=== PATIENT | female | born 1955 | race Caucasian/White ===

== ENCOUNTER → 2017-08-24 07:58 | Outpatient (CLI) | payer OTHER, SELFPAY ==
[2017-08-24 09:03] LABS: Basophils % 0.6 % (0.1-2.0); Eosinophils # 0.1 K/mm3 (0.0-0.4); Eosinophils % 2.6 % (0.1-12.0); Hematocrit 40.1 % (37.0-47.0); Hemoglobin 13.3 g/dL (12.2-16.2); Lymphocytes # 1.4 K/mm3 (0.7-4.5); Lymphocytes % 24.9 K/mm3 (10-50); Mean Corpuscular Hemoglobin 32.8 pg (27.0-31.2); Mean Corpuscular Volume 99.4 fl (81-99); Mean Platelet Volume 9.1 fl (7.4-10.4); Monocytes # 0.3 K/mm3 (0.1-1.0); Neutrophils # 3.6 K/mm3 (1.8-7.8); Neutrophils % 65.9 % (37.0-80.0); Platelet Count 210 K/mm3 (142-424); Red Blood Count 4.04 M/mm3 (4.20-5.40); Red Cell Distribution Width 12.5 % (11.5-17.5); White Blood Count 5.5 K/mm3 (4.8-10.8)
[2017-08-24 09:34] LABS: Alanine Aminotransferase 33 U/L (12-78); Albumin Level 3.6 gm/dL (3.4-5.0); Albumin/Globulin Ratio 1.3 (1.1-1.8); Alkaline Phosphatase 100 U/L (46-116); Anion Gap 11.2 mEq/L (5-15); Aspartate Amino Transferase 25 U/L (15-37); Bilirubin,Total 0.4 mg/dL (0.2-1.0); Blood Urea Nitrogen 17 mg/dL (7-18); Calcium 8.9 mg/dL (8.5-10.1); Carbon Dioxide 29 mmol/L (21.0-32.0); Chloride 105 mmol/L (98-107); Creatinine,Serum 1.08 mg/dL (0.55-1.02); Estimated Glomerular Filt Rate 52 ml/min (>60); GFR (African American) 62 ML/MIN (>60); Globulin 2.7 gm/dl (1.3-3.2); Glucose 92 mg/dL (74-106); Potassium 4.2 mmoL/L (3.5-5.1); Sodium 141 mmol/L (136-145); Thyroid Stimulating Hormone 0.26 uIU/ml (0.358-3.740); Total Protein,Serum 6.3 gm/dL (6.4-8.2)
[2017-08-25 07:20] LABS: Testosterone,Total 18 ng/dL (3-41)
[2017-08-25 11:04] LABS: LH 38.9 mIU/mL (.)
[2017-08-25 11:05] LABS: FSH 53.1 mIU/mL (.)
== END ==
PROVIDERS: Visit Provider Internal Medicine Adolescent Medicine
DX: I10 Essential (primary) hypertension (principal); E03.9 Hypothyroidism, unspecified
CPT/HCPCS: 36415; 80053; 83001; 83002; 84403; 84443; 85025

== ENCOUNTER → 2017-12-05 07:13 | Outpatient (CLI) | payer OTHER, SELFPAY ==
[2017-12-05 07:29] LABS: Basophils % 0.4 % (0.1-2.0); Eosinophils # 0.2 K/mm3 (0.0-0.4); Eosinophils % 2.6 % (0.1-12.0); Hematocrit 42.1 % (37.0-47.0); Hemoglobin 13.8 g/dL (12.2-16.2); Lymphocytes # 1.3 K/mm3 (0.7-4.5); Lymphocytes % 20.9 K/mm3 (10-50); Mean Corpuscular HGB Conc 32.8 g/dL (31.8-35.4); Mean Corpuscular Hemoglobin 32.6 pg (27.0-31.2); Mean Corpuscular Volume 99.5 fl (81-99); Mean Platelet Volume 8.6 fl (7.4-10.4); Monocytes # 0.4 K/mm3 (0.1-1.0); Monocytes % 6.2 % (1.7-9.3); Neutrophils # 4.3 K/mm3 (1.8-7.8); Neutrophils % 69.9 % (37.0-80.0); Platelet Count 235 K/mm3 (142-424); Red Blood Count 4.23 M/mm3 (4.20-5.40); Red Cell Distribution Width 12.8 % (11.5-17.5); White Blood Count 6.2 K/mm3 (4.8-10.8)
[2017-12-05 11:41] LABS: Alanine Aminotransferase 39 U/L (12-78); Albumin Level 3.9 gm/dL (3.4-5.0); Albumin/Globulin Ratio 1.4 (1.1-1.8); Alkaline Phosphatase 104 U/L (46-116); Anion Gap 10.9 mEq/L (5-15); Aspartate Amino Transferase 24 U/L (15-37); Bilirubin,Total 0.4 mg/dL (0.2-1.0); Blood Urea Nitrogen 22 mg/dL (7-18); Calcium 9.3 mg/dL (8.5-10.1); Carbon Dioxide 28 mmol/L (21.0-32.0); Chloride 103 mmol/L (98-107); Creatinine,Serum 1.21 mg/dL (0.55-1.02); Estimated Glomerular Filt Rate 45 ml/min (>60); Free Thyroxine Index 3.8 ug/dL (5.93-13.13); GFR (African American) 55 ML/MIN (>60); Globulin 2.8 gm/dl (1.3-3.2); Glucose 89 mg/dL (74-106); Potassium 4.9 mmoL/L (3.5-5.1); Sodium 137 mmol/L (136-145); T4 (Thyroxine) 10.2 ug/dl (4.7-13.3); Total Protein,Serum 6.7 gm/dL (6.4-8.2); Triiodothryronine (T3) Uptake 37 % (31-39)
== END ==
PROVIDERS: Visit Provider Internal Medicine Adolescent Medicine
DX: E03.9 Hypothyroidism, unspecified (principal)
CPT/HCPCS: 36415; 80053; 84436; 84443; 84479; 85025

== ENCOUNTER → 2018-05-30 09:17 | Outpatient (CLI) | payer OTHER, SELFPAY ==
--- NOTE | 2018-05-30 | XR_ITS ---
XR chest 2V HISTORY: ITS.REASON: CHEST WALL PAIN ORDERING PHYSICIAN: Matias Lemon MD PATIENT AGE: 63 years COMPARISON: 08/04/2016 FINDINGS: The cardiomediastinal silhouette and pulmonary vascularity are within normal limits. The lungs are clear without infiltrates, suspicious nodules, or pleural effusions. Calcified nodes are present in the left hilum. Multiple sophia are present along the anterior abdominal wall No acute bony abnormalities. IMPRESSION: No change with no acute finding
[2018-05-30 09:39] LABS: Basophils % 0.4 % (0.1-2.0); Eosinophils % 0.6 % (0.1-12.0); Hematocrit 44.7 % (37.0-47.0); Hemoglobin 14.3 g/dL (12.2-16.2); Lymphocytes # 1.1 K/mm3 (0.7-4.5); Lymphocytes % 15.4 % (10-50); Mean Corpuscular Hemoglobin 31.8 pg (27.0-31.2); Mean Corpuscular Volume 99.5 fl (81-99); Mean Platelet Volume 8.9 fl (7.4-10.4); Monocytes # 0.5 K/mm3 (0.1-1.0); Monocytes % 7.3 % (1.7-9.3); Neutrophils # 5.6 K/mm3 (1.8-7.8); Neutrophils % 76.3 % (37.0-80.0); Platelet Count 206 K/mm3 (142-424); Red Blood Count 4.49 M/mm3 (4.20-5.40); Red Cell Distribution Width 12.8 % (11.5-17.5); White Blood Count 7.3 K/mm3 (4.8-10.8)
[2018-05-30 10:57] LABS: Alanine Aminotransferase 36 U/L (12-78); Albumin/Globulin Ratio 1.4 (1.1-1.8); Alkaline Phosphatase 116 U/L (46-116); Anion Gap 13.5 mEq/L (5-15); Aspartate Amino Transferase 21 U/L (15-37); Bilirubin,Total 0.8 mg/dL (0.2-1.0); Blood Urea Nitrogen 20 mg/dL (7-18); CKMB Relative Index 1.5 U/L (0-4.0); Calcium 9.5 mg/dL (8.5-10.1); Carbon Dioxide 28 mmol/L (21.0-32.0); Chloride 104 mmol/L (98-107); Creatine Kinase 55 U/L (26-192); Creatine Kinase MB 0.8 ng/ml (0.0-3.6); Creatinine,Serum 0.99 mg/dL (0.55-1.02); Estimated Glomerular Filt Rate 57 ml/min (>60); GFR (African American) 69 ML/MIN (>60); Globulin 2.8 gm/dl (1.3-3.2); Glucose 97 mg/dL (74-106); Potassium 4.5 mmoL/L (3.5-5.1); Sodium 141 mmol/L (136-145); Total Protein,Serum 6.8 gm/dL (6.4-8.2); Troponin I < 0.02 ng/ml (0.00-0.06)
== END ==
LOC: LAB 09:18 → RAD 09:24
PROVIDERS: PCP Internal Medicine Adolescent Medicine; Visit Provider Internal Medicine Adolescent Medicine
DX: R07.89 Other chest pain (principal); R07.2 Precordial pain
CPT/HCPCS: 36415; 71046; 80053; 82550; 82553; 84484; 85025

== ENCOUNTER → 2018-11-26 08:23 | Outpatient (CLI) | payer OTHER, SELFPAY ==
[2018-11-26 09:26] LABS: Free Thyroxine Index 3.8 ug/dL (5.93-13.13); Thyroid Stimulating Hormone 0.32 uIU/ml (0.358-3.740); Triiodothryronine (T3) Uptake 38 % (31-39)
== END ==
PROVIDERS: Visit Provider Internal Medicine Adolescent Medicine
DX: E03.9 Hypothyroidism, unspecified (principal)
CPT/HCPCS: 36415; 84436; 84443; 84479

== ENCOUNTER → 2018-12-17 15:06 | Outpatient (CLI) | payer OTHER, SELFPAY ==
[2018-12-17 16:03] LABS: Alanine Aminotransferase 56 U/L (12-78); Albumin Level 3.9 gm/dL (3.4-5.0); Albumin/Globulin Ratio 1.4 (1.1-1.8); Alkaline Phosphatase 133 U/L (46-116); Anion Gap 10.6 mEq/L (5-15); Aspartate Amino Transferase 41 U/L (15-37); Bilirubin,Total 0.3 mg/dL (0.2-1.0); Blood Urea Nitrogen 20 mg/dL (7-18); Calcium 9.3 mg/dL (8.5-10.1); Carbon Dioxide 30 mmol/L (21.0-32.0); Chloride 106 mmol/L (98-107); Creatinine,Serum 0.91 mg/dL (0.55-1.02); Estimated Glomerular Filt Rate 63 ml/min (>60); GFR (African American) 76 ML/MIN (>60); Globulin 2.8 gm/dl (1.3-3.2); Glucose 97 mg/dL (74-106); Magnesium 2.2 mg/dL (1.4-2.2); Potassium 4.6 mmoL/L (3.5-5.1); Sodium 142 mmol/L (136-145); Thyroid Stimulating Hormone 0.19 uIU/ml (0.358-3.740); Total Protein,Serum 6.7 gm/dL (6.4-8.2)
[2018-12-17 16:06] LABS: Basophils % 0.5 % (0.1-2.0); Eosinophils # 0.2 K/mm3 (0.0-0.4); Eosinophils % 4.1 % (0.1-12.0); Hematocrit 42.8 % (37.0-47.0); Hemoglobin 13.6 g/dL (12.2-16.2); Lymphocytes # 1.4 K/mm3 (0.7-4.5); Lymphocytes % 24.1 % (10-50); Mean Corpuscular HGB Conc 31.7 g/dL (31.8-35.4); Mean Corpuscular Hemoglobin 32.2 pg (27.0-31.2); Mean Corpuscular Volume 101.7 fl (81-99); Mean Platelet Volume 8.4 fl (7.4-10.4); Monocytes # 0.2 K/mm3 (0.1-1.0); Monocytes % 3.5 % (1.7-9.3); Neutrophils % 67.9 % (37.0-80.0); Platelet Count 215 K/mm3 (142-424); Red Blood Count 4.21 M/mm3 (4.20-5.40); Red Cell Distribution Width 12.8 % (11.5-17.5); White Blood Count 5.9 K/mm3 (4.8-10.8)
[2018-12-19 10:03] LABS: Vitamin B12 >2000 pg/mL (232-1245); Vitamin D 25 Hydroxy 30.5 ng/mL (30.0-100.0)
== END ==
PROVIDERS: Visit Provider Nurse Practitioner Family
DX: R53.81 Other malaise (principal); R42 Dizziness and giddiness; E03.9 Hypothyroidism, unspecified
CPT/HCPCS: 36415; 80053; 82607; 82652; 83735; 84443; 85025

== ENCOUNTER → 2019-01-15 13:38 | Outpatient (CLI) | payer OTHER, SELFPAY ==
--- NOTE | 2019-01-15 13:39 | MM_ITS ---
PROCEDURE: MM DIG SCREENING MAMM BI W/CAD CLINICAL INDICATION: bilateral breast pain, annual screening There is no personal or family history of breast cancer. COMPARISON: [facility]B DIGITAL MAMM-SCREEN BILATERAL from 12/30/2010 D[facility]B DIG MAMM-SCREEN JUWAN from 10/12/2012 DMSB DIG MAMM-SCREEN JUWAN W/CAD from 09/01/2016 TECHNIQUE: Standard CC and MLO images were obtained. R2 CAD reviewed. FINDINGS: Breasts are composed primarily of fat with minimal scattered fibroglandular densities in each breast. There is benign-appearing macrocalcifications left breast, there is faint arterial calcification in each breast. There is no suspicious lesion in either breast and no suspicious microcalcifications. There are fatty replaced nodes in both IMPRESSION: Fibrofatty parenchyma with no suspicious lesions seen BI-RAD Category: 2 Benign Finding(s) FOLLOW-UP: 1YR 1 Year Follow-up (A letter has been sent to the patient regarding results of the study.) Dictated by: Dr. Ishaan Paulino MD 01/20/2019 15:[address] Ishaan Paulino MD in [place] 01/20/2019 15:36
== END ==
PROVIDERS: PCP Internal Medicine Adolescent Medicine; Visit Provider Nurse Practitioner Obstetrics & Gynecology
DX: N64.4 Mastodynia (principal)
CPT/HCPCS: 77067

== ENCOUNTER → 2020-03-26 08:52 | Outpatient (CLI) | payer OTHER, SELFPAY ==
--- NOTE | 2020-03-26 08:54 | MM_ITS ---
PROCEDURE: MM DIG SCREENING MAMM BI W/CAD Digital Breast Tomosynthesis Included CLINICAL INDICATION: SCREENING There is no personal or family history of breast cancer. COMPARISON: MG DMSB DIG MAMM-SCREEN JUWAN from 10/12/2012 MG DMSB DIG MAMM-SCREEN JUWAN W/CAD from 09/01/2016 MG MM DIG SCREENING MAMM BI W/CAD from 01/15/2019 TECHNIQUE: Standard CC and MLO images and 3D Tomosynthesis was obtained. R2 CAD reviewed. FINDINGS: Scattered fibroglandular densities are seen throughout both breasts. There is a benign-appearing macro calcification left breast. There is no suspicious lesion in either breast and no suspicious microcalcifications. IMPRESSION: Fibrofatty parenchyma with no suspicious lesions seen BI-RAD Category: 2 Benign Finding(s) FOLLOW-UP: 1YR 1 Year Follow-up (A letter has been sent to the patient regarding results of the study.) Dictated by: Dr. Ishaan Paulino MD 03/29/2020 11:09 Dr. Ishaan Paulino MD in [place] 03/29/2020 11:09
== END ==
PROVIDERS: PCP Internal Medicine Adolescent Medicine; Visit Provider Internal Medicine Adolescent Medicine
DX: Z12.31 Encounter for screening mammogram for malignant neoplasm of breast (principal)
CPT/HCPCS: 77063; 77067

== ENCOUNTER → 2020-05-15 15:55 | Outpatient (CLI) | payer OTHER, SELFPAY | PROVIDERS: PCP Internal Medicine Adolescent Medicine; Visit Provider Internal Medicine Adolescent Medicine | DX: R51.9 Headache, unspecified; Z11.52 Encounter for screening for COVID-19 | CPT/HCPCS: U0003 ==

== ENCOUNTER → 2020-06-12 10:08 | Outpatient (CLI) | payer OTHER, SELFPAY ==
--- NOTE | 2020-06-12 10:13 | XR_ITS ---
PROCEDURE: XR HAND LT MIN 3V CLINICAL INDICATION: left hand pain/ cyst COMPARISON: No exams were available for comparison FINDINGS: No fracture or dislocation. No lytic or blastic change. There is normal mineralization. The joint spaces are well-preserved. No significant degenerative/arthritic changes. No erosive changes evident. Other findings:None. IMPRESSION: No acute findings. Dictated by: Scout Cantrell MD 06/12/2020 12:16 Scout Cantrell MD in [place] 06/12/2020 12:16
== END ==
PROVIDERS: PCP Internal Medicine Adolescent Medicine; Visit Provider Orthopaedic Surgery
DX: M79.642 Pain in left hand (principal)
CPT/HCPCS: 73130

== ENCOUNTER → 2020-07-01 11:55 | Outpatient (CLI) | payer OTHER, SELFPAY ==
[2020-07-01 13:47] LABS: Coronavirus 19 IgG Antibody Positive (Negative); Coronavirus 19 IgM Antibody Negative (Negative)
== END ==
PROVIDERS: Visit Provider Orthopaedic Surgery
DX: Z01.818 Encounter for other preprocedural examination (principal); M79.642 Pain in left hand; R22.32 Localized swelling, mass and lump, left upper limb; Z20.822 Contact with and (suspected) exposure to COVID-19
CPT/HCPCS: 86328

== ENCOUNTER 2020-07-02 09:42 | Day surgery (SDC) | payer OTHER, SELFPAY ==
[2020-06-30 10:57] VITALS: BMI 35.4
[2020-07-02 09:57] VITALS: BP 138/73; PULSE 68; RESP 18; TEMP 36.2; O2SAT 100
--- NOTE | 2020-07-02 10:22 | HMH.ANESCL ---
[facility] Anesthesia Checklist - Structural Data Admitted From: Home Planned Operative Procedure/s: excision mass l hand Consent for Planned Operative Procedure(s) Verified: Yes - Additional verifications Anesthesia Reactions: No Hx Blood Transfusions: No Blood Transfusion Reaction: No - Airway Assessment C-Spine Mobility Assessed: Yes TMJ Mobility Assessed: Yes Dentition: Good Dentition - Neurological Assessment Level of Consciousness: Awake, Alert, Appropriate - Anesthesia Plan Anesthesia Risk discussed: Yes Anesthesia Plan: Verified ASA Class: II Anesthesia Type: Local & MAC [facility] History I have reviewed the patient's past medical history: Yes Medical History: Reports:: Hypertension Denies:: Cancer, Diabetes Mellitus Type 1, Diabetes Mellitus Type 2, Internal Pacemaker, Lung Disease, MRSA, Seizures *Have you ever received a pneumonia vaccine?: No *Have you received a flu vaccine this season?: Yes Other Medical History: Reports: Thyroid Disease. Denies: Blood Transfusion Reaction Anesthesia experience/problems:: none Other Surgeries: Yes: Bariatric Surgery, Colonoscopy, , Other. No: Pacemaker Amputation: No Fractures: No - *Social History Last grade of school completed: Advanced degree Smoking Status: Never smoker Alcohol Intake: never Substance Use Type: denies use *Occupational Status:: employed Housing: house Household Members: spouse *Travel in the last 8 weeks: None Family Hx:: No significant family history
[2020-07-02 11:05] VITALS: BP 106/69; PULSE 68; RESP 18; TEMP 36.4; O2SAT 94
[2020-07-02 11:15] VITALS: BP 118/69; PULSE 58; RESP 18; O2SAT 94
--- NOTE | 2020-07-02 11:18 | HMH.OPNOTE ---
Date of procedure: 07/02/20 Pre-op Diagnosis:: L hand mass Post-op Diagnosis:: L hand mass Procedure performed:: excision of L hand mass Surgeon:: Kalie Faustin MD Lead Assistant Manager(s):: Mecca Urena LICENSED MIDWIFE:: Rickie Burdick Anesthesia: MAC, local Estimated blood loss (mL): 5 Clinical Note:: 65-year-old [id number] female presents for initial orthopedic evaluation of a mass over the palm of the left hand. The palm is located at the level of the distal flexion crease of the hand, at the base of the middle/ring fingers. She reports no injury to or prior surgeries on this hand. No known cuts, punctures or abrasions in this region. She has never had a mass like this before on either hand and first noticed this appearance several months ago. It is uncomfortable and impedes her gripping objects or doing repetitive work with her hands. 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 She reports no numbness or tingling in any of her fingers. She denies any significant medical comorbidities and only takes ranitidine and levothyroxine. She is allergic to penicillin. She is a non-smoker. I discussed treatment options with the patient, including both operative and nonoperative therapies; she would like to proceed with surgical excision of the mass. I discussed the risks of surgery with the patient, including but not limited to: bleeding, infection, neurovascular damage, wound dehiscence, reappearance of another mass, possible need for further surgery in the future. The patient vocalized understanding, informed consent obtained. Operative findings:: mass L hand; palm, at distal flexion crease, approximately 1cm in diameter Operative note:: The patient was identified in preoperative holding and the L hand signed by myself. Consent was verified with the patient and all questions answered. She was then taken to the OR and placed supine on the operative table with a hand table attached. 900mg clindamycin were infused and the patient sedated intravenously (MAC). Once the patient was anesthetized a non-sterile tourniquet was placed on the upper L arm and the hand prepped and draped in the usual sterile. Timeout was performed, identifying the correct patient, correct procedure, and correct site. Once timeout had been performed, the surgical incision was drawn over the mass, located in the mid-palm, at the level of the distal palmar crease, at the base of the middle finger. It was around 1cm in diameter and a 1cm longitudinal incision was drawn directly over the mass. 10cc 0.5% marcaine were infiltrated in this location for local analgesia using a sterile 25G needle; no epinephrine was in the marcaine. The procedure was begun by exsanguinating the left upper extremity with an esmarch and inflating the tourniquet to 250 mmHg. Incision was made over the pre-marked incision, on the palm, base of middle finger, distal palmar crease. The skin only was incised, and underlying subcutaneous tissue spread bluntly with tenotomy scissors. The mass was immediately identified; it was firm and mobile, somewhat adherent to the overlying skin. Tenotomy scissors were used to develop a plane between the mass and the skin, and with blunt dissection tissue was dissected circumferentially around the entire mass. The mass was entirely superficial to the flexor tendons and there was no obvious involvement of neurovascular structures; the mass was superficial and immediately deep to the skin. The mass was sent for pathology in formalin. The tourniquet was deflated at 17 minutes and the wound copiously irrigated with sterile saline. Bipolar cautery was used to obtain hemostasis and the wound was then closed with 4-0 nylon. Sterile dressing was applied with Xeroform, 4 x 4s, webril and RANDALL bandage. The patient was then taken to PACU where she arrived in good condition and awoke with no pain and was discharged home in the care of her . The [facility]
[2020-07-02 11:25] VITALS: BP 118/68; PULSE 51; RESP 18; O2SAT 95
[2020-07-02 11:42] VITALS: BP 119/69; PULSE 51; RESP 18; O2SAT 97
== END 2020-07-02 11:45 | disposition home or self-care (01) ==
LOC: OR 09:44
PROVIDERS: PCP Internal Medicine Adolescent Medicine; Visit Provider Orthopaedic Surgery
PROC: (CPT 26115; principal; 2020-07-02 11:00)
DX: R22.32 Localized swelling, mass and lump, left upper limb (principal); D23.62 Other benign neoplasm of skin of left upper limb, including shoulder
CPT/HCPCS: 26115; 96374

== ENCOUNTER → 2020-07-20 12:54 | Outpatient (CLI) | payer OTHER, SELFPAY ==
--- NOTE | 2020-07-20 12:56 | XR_ITS ---
PROCEDURE: XR FOOT WT BEARING LT 3V CLINICAL INDICATION: pain COMPARISON: CR FTR3 FOOT-RT-3 VIEWS from 06/19/2012 FINDINGS: No fracture or dislocation. No lytic or blastic change. There is normal mineralization. Mild prominence of the head of the 1st metatarsal. Mildly prominent calcaneal spur. Small Achilles enthesophyte. Other findings:None. IMPRESSION: No acute findings. Dictated by: Scout Cantrell MD 07/20/2020 14:16 Scout Cantrell MD in [place] 07/20/2020 14:16
--- NOTE | 2020-07-20 12:56 | XR_ITS ---
PROCEDURE: XR FOOT WT BEARING RT 3V CLINICAL INDICATION: pain Pain laterally COMPARISON: CR FTR3 FOOT-RT-3 VIEWS from 06/19/2012 FINDINGS: No fracture or dislocation. No lytic or blastic change. There is normal mineralization. The joint spaces are well-preserved. No significant degenerative/arthritic changes. No erosive changes evident. Other findings:Prominent calcaneal spurs present without erosive change. There are mild hypertrophic changes the distal aspect of the 1st metatarsal. No significant change compared to the previous exam. IMPRESSION: No change with no acute finding. Dictated by: Scout Cantrell MD 07/20/2020 14:15 Scout Cantrell MD in [place] 07/20/2020 14:15
== END ==
PROVIDERS: PCP Internal Medicine Adolescent Medicine; Visit Provider Podiatrist
DX: M79.672 Pain in left foot (principal); M79.671 Pain in right foot
CPT/HCPCS: 73630

== ENCOUNTER → 2020-09-14 13:44 | Outpatient (CLI) | payer OTHER, SELFPAY ==
[2020-09-14 14:27] LABS: Basophils % 0.6 % (0.1-2.0); Chloride 107 mmol/L (98-107); Eosinophils # 0.1 K/mm3 (0.0-0.4); Eosinophils % 1.8 % (0.1-12.0); Hematocrit 41.8 % (37.0-47.0); Hemoglobin 13.5 g/dL (12.2-16.2); Lymphocytes # 1.5 K/mm3 (0.7-4.5); Lymphocytes % 23.9 % (10-50); Mean Corpuscular HGB Conc 32.4 g/dL (31.8-35.4); Mean Corpuscular Hemoglobin 32.1 pg (27.0-31.2); Mean Platelet Volume 8.6 fl (7.4-10.4); Monocytes # 0.3 K/mm3 (0.1-1.0); Monocytes % 4.4 % (1.7-9.3); Neutrophils # 4.4 K/mm3 (1.8-7.8); Neutrophils % 69.4 % (37.0-80.0); Platelet Count 222 K/mm3 (142-424); Potassium 4.5 mmoL/L (3.5-5.1); Red Blood Count 4.22 M/mm3 (4.20-5.40); Red Cell Distribution Width 13.3 % (11.5-17.5); Sodium 140 mmol/L (136-145); White Blood Count 6.4 K/mm3 (4.8-10.8)
[2020-09-14 14:30] LABS: Alanine Aminotransferase 23 U/L (12-78); Albumin Level 4.3 g/dl (3.5-5.0); Albumin/Globulin Ratio 1.8 (1.1-1.8); Alkaline Phosphatase 119 U/L (38-126); Anion Gap 11.5 mEq/L (5-15); Aspartate Amino Transferase 35 U/L (14-36); Bilirubin,Total 0.4 mg/dl (0.2-1.3); Blood Urea Nitrogen 13 mg/dl (7-17); Carbon Dioxide 26 mmol/L (22.0-30.0); Estimated Glomerular Filt Rate 50 ml/min (>60); GFR (African American) 61 ML/MIN (>60); Globulin 2.4 g/dL (1.3-3.2); Total Protein,Serum 6.7 g/dl (6.3-8.2)
[2020-09-14 14:31] LABS: Calcium 9.3 mg/dl (8.4-10.2); Glucose 139 mg/dl (74-100)
[2020-09-14 14:36] LABS: C-Reactive Protein 1.2 mg/L (0-4)
[2020-09-14 15:28] LABS: Erythrocyte Sedimentation Rate 22 mm/hr (0-30)
[2020-09-14 16:50] LABS: Thyroid Stimulating Hormone 3.75 uIU/mL (0.465-4.68)
== END ==
PROVIDERS: Visit Provider Internal Medicine Adolescent Medicine
DX: R51.9 Headache, unspecified (principal); E03.9 Hypothyroidism, unspecified
CPT/HCPCS: 36415; 80053; 84443; 85025; 85651; 86140

== ENCOUNTER → 2021-02-09 08:38 | Outpatient (POV) | payer OTHER, SELFPAY | PROVIDERS: Visit Provider Dermatology | DX: Z00.00 Encounter for general adult medical examination without abnormal findings (principal) ==

== ENCOUNTER → 2021-02-18 15:13 | Outpatient (CLI) | payer OTHER, SELFPAY ==
--- NOTE | 2021-02-18 15:17 | XR_ITS ---
PROCEDURE: XR CHEST 2V CLINICAL HISTORY: SOB COMPARISON: CR CXR CHEST(2 VIEWS-NOT PORTABLE) from 05/22/2016 CR CXR CHEST(2 VIEWS-NOT PORTABLE) from 08/04/2016 CR CXR2V XR chest 2V from 05/30/2018 FINDINGS: The cardiomediastinal silhouette and pulmonary vascularity are within normal limits. The lungs are clear without infiltrates, suspicious nodules, or pleural effusions. No acute bony abnormalities. IMPRESSION: No acute findings. Dictated by: Scout Cantrell MD 02/18/2021 16:11 Scout Cantrell MD in [place] 02/18/2021 16:11
== END ==
PROVIDERS: PCP Internal Medicine Adolescent Medicine; Visit Provider Internal Medicine Adolescent Medicine
DX: R06.02 Shortness of breath (principal)
CPT/HCPCS: 71046

== ENCOUNTER → 2021-03-18 12:06 | Outpatient (CLI) | payer OTHER, SELFPAY ==
[2021-03-18 12:10] LABS: Microscopic, Urine URINE MICROSCOPIC (MICROSCOPIC)
[2021-03-18 13:27] LABS: Appearance,Urine CLEAR (Clear); Bilirubin,Urine Negative (Negative); Blood, Urine Negative (Negative); Color,Urine YELLOW (Yellow); Glucose,Urine (UA) Negative (Negative); Ketones,Urine Negative (Negative); Leukocyte Esterase,Urine 1+ (Negative); Nitrate,Urine Negative (Negative); Protein,Urine Negative (Negative); Specific Gravity, Urine 1.015 (1.005-1.030); Urobilinogen,Urine 0.2 EU/dl (0.2)
[2021-03-18 13:37] LABS: Bacteria,Urine Trace /lpf; Squamous Epithelial Cell,Urine Occasional #/hpf (0-5)
== END ==
PROVIDERS: Visit Provider Internal Medicine Adolescent Medicine
DX: N39.0 Urinary tract infection, site not specified (principal)
CPT/HCPCS: 81001; 87086; 87186

== ENCOUNTER → 2021-03-29 08:47 | Outpatient (CLI) | payer OTHER, SELFPAY ==
[2021-03-29 09:51] LABS: Anion Gap 10.8 mEq/L (5-15); Blood Urea Nitrogen 15 mg/dl (7-17); Calcium 9.5 mg/dl (8.4-10.2); Carbon Dioxide 32 mmol/L (22.0-30.0); Chloride 105 mmol/L (98-107); Estimated Glomerular Filt Rate 63 ml/min (>60); GFR (African American) 76 ML/MIN (>60); Glucose 99 mg/dl (74-100); Potassium 4.8 mmoL/L (3.5-5.1); Sodium 143 mmol/L (136-145)
== END ==
PROVIDERS: Visit Provider Internal Medicine Adolescent Medicine
DX: I10 Essential (primary) hypertension (principal)
CPT/HCPCS: 36415; 80048

== ENCOUNTER → 2021-04-15 07:43 | Outpatient (CLI) | payer OTHER, SELFPAY ==
--- NOTE | 2021-04-15 07:45 | MM_ITS ---
PROCEDURE INFORMATION: Exam: MG Bilateral Screening 3D Mammography Exam date and time: 04/15/2021 7:45 AM Age: 65 years old Clinical indication: Encounter for screening mammogram for malignant neoplasm of breast TECHNIQUE: Imaging protocol: Bilateral screening tomosynthesis and 2D mammography including computer-aided detection (CAD) when performed. COMPARISON: 1. MG MM DIG SCREENING MAMM BI W/CAD 03/26/2020 9:03 AM 2. MG MM DIG SCREENING MAMM BI W/CAD 01/15/2019 1:56 PM FINDINGS: MAMMOGRAPHY: Breast composition: The breasts are almost entirely fatty. Mass: None. Architectural distortion: None. Calcifications: No suspicious calcifications. Asymmetric density: None. Skin thickening: None. Axillary adenopathy: None. IMPRESSION: No mammographic evidence of malignancy. Annual screening is recommended unless otherwise clinically indicated. ASSESSMENT: BI-RADS Category 1: Negative
== END ==
PROVIDERS: PCP Internal Medicine Adolescent Medicine; Visit Provider Internal Medicine Adolescent Medicine
DX: Z12.31 Encounter for screening mammogram for malignant neoplasm of breast (principal)
CPT/HCPCS: 77063; 77067

== ENCOUNTER → 2022-02-02 09:07 | Outpatient (CLI) | payer MEDICARE, SELFPAY ==
--- NOTE | 2022-02-02 09:11 | XR_ITS ---
FINAL REPORT TECHNIQUE: Bone mineral density was calculated of the lumbar spine and hip. CLINICAL HISTORY: screening FINDINGS: DEXA BONE DENSITY AXIAL SKELETON Using L1-4, the bone mineral density of the spine is 1.289 g/cm2, corresponding to T-score of 2.2. Using the left hip, the bone mineral density of the femoral neck is 0.864 g/cm2, corresponding to a T-score of 0.1. NOTE: T-score: Standard deviation compared with peak bone mass of young adult mean. *Following the recommendations of the International Society of Bone densitometry, classification of hip BMD is based on the lower of two T-scores; total hip or femoral neck. IMPRESSION: Normal bone mineral density of the lumbar spine and hip. Reviewed, Interpreted and Dictated by Andres Cardona MD Transcribed by Jeana Escobar Authenticated and [facility]
== END ==
PROVIDERS: PCP Internal Medicine Adolescent Medicine; Visit Provider Internal Medicine Adolescent Medicine
DX: Z78.0 Asymptomatic menopausal state (principal)
CPT/HCPCS: 77080

== ENCOUNTER → 2022-03-18 12:24 | Outpatient (CLI) | payer MEDICARE, SELFPAY ==
--- NOTE | 2022-03-18 12:31 | XR_ITS ---
FINAL REPORT CLINICAL HISTORY: FOOT PAIN FINDINGS: 3 views of the left foot were obtained. There is no acute fracture or dislocation. Large plantar spur. The joint spaces are intact. The soft tissues are unremarkable. IMPRESSION: Large plantar spur. Reviewed, Interpreted and Dictated by Sai Shen MD Transcribed by Tony Porras Authenticated and [facility]
--- NOTE | 2022-03-18 12:31 | XR_ITS ---
FINAL REPORT CLINICAL HISTORY: PAIN FINDINGS: 3 views of the right foot were obtained. There is no acute fracture or dislocation. Large plantar spur. The joint spaces are intact. The soft tissues are unremarkable. IMPRESSION: Large plantar spur. Reviewed, Interpreted and Dictated by Sai Shen MD Transcribed by Tony Porras Authenticated and [facility]
== END ==
PROVIDERS: PCP Internal Medicine Adolescent Medicine; Visit Provider Internal Medicine Adolescent Medicine
DX: M79.672 Pain in left foot (principal); M79.671 Pain in right foot
CPT/HCPCS: 73630

== ENCOUNTER → 2022-10-05 12:51 | Outpatient (CLI) | payer MEDICARE, SELFPAY ==
--- NOTE | 2022-10-05 13:12 | XR_ITS ---
FINAL REPORT TECHNIQUE: Chest PA & Lateral CLINICAL HISTORY: head/chest congestion, edema in feet, productive green cough COMPARISON: None FINDINGS: 2 views of the chest were performed. The heart size is normal. The mediastinum is within normal limits. There is no acute cardiopulmonary process. There are no pleural effusions. There is no pneumothorax. The bony thorax appears intact. Calcified left hilar nodes are present. The overall exam is under inflated. IMPRESSION: No acute cardiopulmonary process. Reviewed, Interpreted and Dictated by Sai Shen MD Transcribed by Cathy Cisneros Authenticated and [facility]
[2022-10-05 13:31] LABS: Basophils % 0.3 % (0.1-2.0); Eosinophils # 0.1 K/mm3 (0.0-0.4); Hematocrit 39.4 % (37.0-47.0); Hemoglobin 12.6 g/dL (12.2-16.2); Lymphocytes # 1.5 K/mm3 (0.7-4.5); Lymphocytes % 24.3 % (10-50); Mean Corpuscular Hemoglobin 31.8 pg (27.0-31.2); Mean Corpuscular Volume 99.4 fl (81-99); Mean Platelet Volume 8.6 fl (7.4-10.4); Monocytes # 0.4 K/mm3 (0.1-1.0); Monocytes % 6.1 % (1.7-9.3); Neutrophils # 4.1 K/mm3 (1.8-7.8); Neutrophils % 67.3 % (37.0-80.0); Platelet Count 255 K/mm3 (142-424); Red Blood Count 3.96 M/mm3 (4.20-5.40); Red Cell Distribution Width 13.5 % (11.5-17.5); White Blood Count 6.1 K/mm3 (4.8-10.8)
[2022-10-05 14:16] LABS: Alanine Aminotransferase 27 U/L (12-78); Albumin Level 3.6 g/dl (3.5-5.0); Albumin/Globulin Ratio 1.4 (1.1-1.8); Alkaline Phosphatase 109 U/L (38-126); Anion Gap 11.7 mEq/L (5-15); Aspartate Amino Transferase 35 U/L (14-36); Bilirubin,Total 0.4 mg/dl (0.2-1.3); Blood Urea Nitrogen 10 mg/dl (7-17); Calcium 8.5 mg/dl (8.4-10.2); Carbon Dioxide 30 mmol/L (22.0-30.0); Chloride 106 mmol/L (98-107); Estimated Glomerular Filt Rate 63 ml/min (>60); GFR (African American) 76 ML/MIN (>60); Globulin 2.6 g/dL (1.3-3.2); Glucose 84 mg/dl (74-100); Magnesium 2.1 mg/dl (1.6-2.3); Potassium 4.7 mmoL/L (3.5-5.1); Sodium 143 mmol/L (136-145); Total Protein,Serum 6.2 g/dl (6.3-8.2)
[2022-10-05 14:24] LABS: NT Pro Brain Natriuretic Pep. 823 pg/mL (0-125)
[2022-10-05 14:46] LABS: Thyroid Stimulating Hormone 0.02 uIU/mL (0.465-4.68)
== END ==
PROVIDERS: PCP Internal Medicine Adolescent Medicine; Visit Provider Internal Medicine Adolescent Medicine
DX: R60.9 Edema, unspecified (principal); J18.0 Bronchopneumonia, unspecified organism; R06.09 Other forms of dyspnea
CPT/HCPCS: 36415; 71046; 80053; 83735; 83880; 84443; 85025

== ENCOUNTER → 2022-10-13 14:46 | Outpatient (CLI) | payer MEDICARE, SELFPAY | PROVIDERS: PCP Internal Medicine Adolescent Medicine; Visit Provider Internal Medicine Adolescent Medicine | DX: R06.02 Shortness of breath (principal); R60.9 Edema, unspecified; I10 Essential (primary) hypertension | CPT/HCPCS: 93306 ==

== ENCOUNTER 2023-10-28 16:02 | Emergency (ER) | payer MEDICARE, SELFPAY ==
[2023-10-28] VITALS (8 sets, daily range): BP systolic 105–143; BP diastolic 59–81; PULSE 57–78; RESP 12–18; TEMP 36.6–36.8; O2SAT 95–98; BMI 42.5
--- NOTE | 2023-10-28 16:17 | CT_ITS ---
PROCEDURE INFORMATION: Exam: CT Head Without Contrast Exam date and time: 10/28/2023 4:47 PM Age: 68 years old Clinical indication: Other: N/v, HTN TECHNIQUE: Imaging protocol: Computed tomography of the head without contrast. Radiation optimization: All CT scans at this facility use at least one of these dose optimization techniques: automated exposure control; mA and/or kV adjustment per patient size (includes targeted exams where dose is matched to clinical indication); or iterative reconstruction. COMPARISON: No relevant prior studies available. FINDINGS: Brain: No hemorrhage. Unremarkable white matter. No mass effect. Cerebral ventricles: No ventriculomegaly. Pituitary gland and sella: Empty sella. Paranasal sinuses: Small right maxillary sinus mucous retention cyst. No fluid levels. Mastoid air cells: Visualized mastoid air cells are well aerated. Bones: Unremarkable. No acute fracture. Soft tissues: Unremarkable. IMPRESSION: No acute intracranial findings.
--- NOTE | 2023-10-28 16:17 | XR_ITS ---
PROCEDURE INFORMATION: Exam: XR Chest Exam date and time: 10/28/2023 4:54 PM Age: 68 years old Clinical indication: Other: N/v TECHNIQUE: Imaging protocol: Radiologic exam of the chest. Views: 1 view. COMPARISON: CR XR CHEST 2V 10/05/2022 1:14 PM FINDINGS: Lungs: Mildly hypoventilated lungs. Hazy left lower lobe opacities. Pleural spaces: No pleural effusion. No pneumothorax. Heart/Mediastinum: Stable cardiomediastinal contours with prominence of the pulmonary trunk. Bones/joints: Unremarkable. IMPRESSION: Mildly hypoventilated lungs. Hazy left lower lobe opacities favoring atelectasis although infection cannot be excluded.
--- NOTE | 2023-10-28 16:19 | ECG_ITS ---
APPROVED REPORT Exam: Resting ECG HR:72 bpm ECG Measurements Heart Rate 72 AXES VT 161 P 45 QRSd 80 QRS 21 QT 360 T 33 QTc 384 Conclusion SINUS RHYTHM LOW QRS VOLTAGE IN PRECORDIAL LEADS [QRS DEFLECTION < 1.0 mV IN CHEST LEADS] BORDERLINE ECG UNCONFIRMED REPORT Electronically signed by : JEET BEAVER, 10/29/2023 00:43:08
--- NOTE | 2023-10-28 16:19 | ED_ITS ---
Discharge Plan Disposition Patient Disposition: Home, Self-Care Condition: Good Prescriptions Prescriptions: No Action ranitidine HCl 300 mg tablet 300 mg PO DAILY omeprazole 20 mg capsule,delayed release(DR/EC) 20 mg PO Patient Comments: TAKE ONE CAPSULE BY MOUTH EVERY DAY levothyroxine 150 mcg tablet 150 mcg PO cyanocobalamin (vitamin B-12) 1,000 MCG tablet 1,000 mcg PO DAILY magnesium oxide 400 MG tablet 400 mg PO DAILY ergocalciferol (vitamin D2) 50 MCG capsule 25 mcg PO DAILY Referrals Follow up/Referrals: Matias Lemon MD [Primary Care Provider] - See instructions Activity Restrictions/Add. Instructions Additional Instructions/Restrictions: You have been evaluated in the ED for your complaints. You may follow-up with your PCP in the next 3 to 5 days. Please return to ED for any new or worsening symptoms. Clinical Impressions Clinical Impression: Dizziness, Nausea & vomiting Discharge ED Provider: Rafa Licona General Adult HPI General Chief complaint: Dizziness Stated complaint: dizzy, vomiting, BP varies in arms Time Seen by Provider: 10/28/23 16:06 History of Present Illness HPI narrative: 68-year-old female with past medical history significant for HTN on lisinopril and nifedipine, hypothyroidism, presents today for evaluation concerning lightheadedness with associated nausea and vomiting onset prior to arrival. Patient states that she checked her blood pressure at home and noted that she was 100/70 in the left arm and 130/90 in the right arm. She also complains of a generalized headache. Denies any visual disturbances. Denies any chest pain or shortness of breath. Has not had any fevers, chills, abdominal pain, dysuria or hematuria. No further complaints. Related Data Home Medications Medication Instructions Recorded Confirmed ranitidine HCl 300 mg tablet 300 mg PO DAILY GERD 02/13/18 08/03/20 cyanocobalamin (vitamin B-12) 1,000 mcg PO DAILY Supplement 07/02/20 08/03/20 1,000 mcg tablet ergocalciferol (vitamin D2) 50 mcg 25 mcg PO DAILY Supplement 07/02/20 08/03/20 (2,000 unit) capsule magnesium oxide 400 mg (241.3 mg 400 mg PO DAILY muscle cramps 07/02/20 08/03/20 magnesium) tablet levothyroxine 150 mcg tablet 150 mcg PO 07/28/20 08/03/20 omeprazole 20 mg capsule,delayed 20 mg PO 07/28/20 08/03/20 release Allergies Allergy/AdvReac Type Severity Reaction Status Date / Time Penicillins [PENICILLINS] Allergy Severe rash Verified 10/28/23 16:31 [facility] Disclaimer: The information contained in this section may have been updated after the patient was seen, as this information can be updated by other users. Social History Smoking Status: Never smoker second hand exposure: No alcohol intake: never substance use type: denies use current occupational status: employed Travel in the last 8 weeks: None household members: spouse housing: house current occupation: [employer] current occupational exposures/hazards: Yes caffeine: Yes ROS Obtained: Yes All systems reviewed & no additional complaints except as documented Physical Exam General General appearance: alert and in no apparent distress Head Head exam: atraumatic and normocephalic Eye Eye exam: Present normal appearance, PERRL and EOMI ENT ENT exam: Present normal oropharynx and mucous membranes moist Neck Neck exam: Present full ROM; Absent meningismus Respiratory Respiratory exam: Absent respiratory distress, wheezes, stridor or accessory muscle use Cardiovascular Cardiovascular exam: Present normal rhythm Abdominal Exam Abdominal exam: Present soft; Absent distention, tenderness, guarding, rebound or rigidity Neurological Exam Neurological exam: Present alert, oriented X3 and CN II-XII intact; Absent motor sensory deficit Psychiatric Psychiatric exam: Present normal affect and normal mood Skin Skin exam: Present warm and dry Medical Decision Making Medical Records Medical records reviewed: Yes I reviewed the patient's medical records. Ravinder Inquiry Pt receiving controlled substance: No Ravinder was queried for this patient: No Vital Signs: 10/28/23 16:12 10/28/23 16:15 10/28/23 16:18 Temperature 98.2 F Temperature Source Oral Pulse Rate 78 67 Pulse Rate [Left] 72 Respiratory Rate 12 Blood Pressure 141/74 H 143/62 H Blood Pressure [Left Arm] 141/74 H Blood Pressure [Right Arm] 143/62 H Blood Pressure Mean Blood Pressure Mean [Left Arm] 96 Blood Pressure Mean [Right Arm] 89 Blood Pressure Source [Left Arm] Automatic Cuff Blood Pressure Source [Right Arm] Automatic Cuff Blood Pressure Position [Left Arm] Sitting Blood Pressure Position [Right Arm] Sitting 02 Sat by Pulse Oximetry 98 96 97 Oxygen Delivery Method Room Air 10/28/23 16:31 10/28/23 17:31 10/28/23 18:00 Temperature Temperature Source Pulse Rate 57 L 57 L 62 Pulse Rate [Left] Respiratory Rate 12 14 Blood Pressure 128/69 114/65 105/59 L Blood Pressure [Left Arm] Blood Pressure [Right Arm] Blood Pressure Mean 81 88 Blood Pressure Mean [Left Arm] Blood Pressure Mean [Right Arm] Blood Pressure Source [Left Arm] Blood Pressure Source [Right Arm] Blood Pressure Position [Left Arm] Blood Pressure Position [Right Arm] 02 Sat by Pulse Oximetry 95 95 95 Oxygen Delivery Method 10/28/23 18:30 10/28/23 20:11 Temperature 98 F Temperature Source Pulse Rate 65 60 Pulse Rate [Left] Respiratory Rate 18 Blood Pressure 108/79 L 129/81 Blood Pressure [Left Arm] Blood Pressure [Right Arm] Blood Pressure Mean 90 Blood Pressure Mean [Left Arm] Blood Pressure Mean [Right Arm] Blood Pressure Source [Left Arm] Blood Pressure Source [Right Arm] Blood Pressure Position [Left Arm] Blood Pressure Position [Right Arm] 02 Sat by Pulse Oximetry 96 Oxygen Delivery Method Lab Data Lab Results 10/28/23 16:19: WBC 5.9, RBC 3.91 L, Hgb 12.8, Hct 40.5, MCV 103.4 H, MCH 32.6 H , MCHC 31.6 L, RDW 13.7, Plt Count 238, MPV 8.8, Neut % (Auto) 63.3, Lymph % (Auto) 26.3, [place] % (Auto) 6.8, Eos % (Auto) 2.7, Baso % (Auto) 0.9, Neut # (Auto) 3.8, Lymph # (Auto) 1.6, [place] # (Auto) 0.4, Eos # (Auto) 0.2, Baso # (Auto) 0.1, Sodium 140, Potassium 4.2, Chloride 108 H, Carbon Dioxide 26, Anion Gap 10.2, BUN 16, Creatinine 1.20 H, Estimated Creat Clear 38, Estimated GFR 45 L, Est GFR ( Amer) 54 L, Glucose 111 H, Calcium 9.2, Total Bilirubin 0.4, AST 37 H, ALT 23, Alkaline Phosphatase 119, Troponin I < 0.01, Total Protein 7.0, Albumin 4.1, Globulin 2.9, Albumin/Globulin Ratio 1.4 10/28/23 18:52: Troponin I < 0.01 10/28/23 16:19 10/28/23 16:19 Orders (Tests/Meds): ED MEDICATIONS Discontinued Medications Generic Name Dose Route Start Last Admin Trade Name Laya PRN Reason Stop Dose Admin Lactated Ringer's 500 mls @ 999 mls/hr 10/28/23 16:26 10/28/23 16:37 Lactated Ringer's 1000 Ml Bag IV 10/28/23 16:56 999 mls/hr .Q31M ONE Administration Ondansetron HCl 4 mg 10/28/23 16:26 10/28/23 16:37 Ondansetron 4mg/2ml Vial IV 10/28/23 16:27 4 mg ONCE ONE Administration ORDERS Category Date Time Status CT head/brain wo con Stat Cat Scan 10/28/23 16:17 Completed CXR --portable [XR chest portable] Stat Exams 10/28/23 16:17 Completed CBC w/Auto Diff [Complete Blood Count Auto Diff] Stat Lab 10/28/23 16:19 Completed CMP [Comprehensive Metabolic Panel] Stat Lab 10/28/23 16:19 Completed Trop I [Troponin I] Stat Lab 10/28/23 16:19 Completed Troponin I Q3H Lab 10/28/23 18:52 Completed EKG Request [ECG Request] Stat Y 10/28/23 16:19 Ordered HEART Score History (anamnesis): Slightly suspicious ECG: Normal Age: >65 years Risk factors: 1-2 risk factors Troponin: </= normal limit HEART Score: 3 Medical Decision Narrative: 68-year-old female with past medical history significant for HTN on lisinopril and nifedipine, hypothyroidism, presents today for evaluation concerning lightheadedness with associated nausea and vomiting onset prior to arrival. Patient states that she checked her blood pressure at home and noted that she was 100/70 in the left arm and 130/90 in the right arm. She also complains of a generalized headache. Denies any visual disturbances. Denies any chest pain or shortness of breath. On assessment, she was hemodynamically stable and in no acute distress. Afebrile. Chest clear auscultation bilaterally. Abdomen soft nondistended and nontender palpation. No extremity edema. Left arm 141/74. Right arm 143/62. Neurological exam nonfocal. Other physical exam findings unremarkable differential diagnoses include not limited to ACS, hypertensive urgency, hypertensive emergency, intracranial abnormality, among others. She was given Zofran for symptom control. EKG was personally inter by me and was remarkable for normal sinus rhythm with a rate of 72 bpm. No ischemic changes. Chest x-ray showed atelectasis. CT head without any acute intracranial normalities. WBC of 5.9. CMP with creatinine mildly elevated at 1.20. Patient did receive IV fluids while in the ED. Initial and second troponin less than 0.01. On reassessment she remained hemodynamically stable and in no acute distress. Maintained appropriate blood pressures. Stated that she was feeling much improved at this time. I discussed ED workup and results as well as current plan to discharge. She will continue to take her blood pressure medications as prescribed. She will follow-up with her PCP. Provided with return ED precautions. She verbalized understanding and agreed with plan and was subsequently discharged home hemodynamically stable and in no acute distress. Critical Care Critical Care Time Critical Care Time: No
[2023-10-28 16:26] LABS: Basophils # 0.1 K/mm3 (0-0.2); Basophils % 0.9 % (0.1-2.0); Eosinophils # 0.2 K/mm3 (0.0-0.4); Eosinophils % 2.7 % (0.1-12.0); Hematocrit 40.5 % (37.0-47.0); Hemoglobin 12.8 g/dL (12.2-16.2); Lymphocytes # 1.6 K/mm3 (0.7-4.5); Lymphocytes % 26.3 % (10-50); Mean Corpuscular HGB Conc 31.6 g/dL (31.8-35.4); Mean Corpuscular Hemoglobin 32.6 pg (27.0-31.2); Mean Corpuscular Volume 103.4 fl (81-99); Mean Platelet Volume 8.8 fl (7.4-10.4); Monocytes # 0.4 K/mm3 (0.1-1.0); Monocytes % 6.8 % (1.7-9.3); Neutrophils # 3.8 K/mm3 (1.8-7.8); Neutrophils % 63.3 % (37.0-80.0); Platelet Count 238 K/mm3 (142-424); Red Blood Count 3.91 M/mm3 (4.20-5.40); Red Cell Distribution Width 13.7 % (11.5-17.5); White Blood Count 5.9 K/mm3 (4.8-10.8)
[2023-10-28 16:29] LABS: Chloride 108 mmol/L (98-107); Sodium 140 mmol/L (136-145)
[2023-10-28 16:30] LABS: Potassium 4.2 mmoL/L (3.5-5.1)
[2023-10-28 16:32] LABS: Alanine Aminotransferase 23 U/L (12-78); Alkaline Phosphatase 119 U/L (38-126); Aspartate Amino Transferase 37 U/L (14-36); Bilirubin,Total 0.4 mg/dl (0.2-1.3); Blood Urea Nitrogen 16 mg/dl (7-17); Creatinine Clearance Estimated 38 mL/min (50-200); Estimated Glomerular Filt Rate 45 ml/min (>60); GFR (African American) 54 ML/MIN (>60)
[2023-10-28 16:33] LABS: Albumin Level 4.1 g/dl (3.5-5.0); Albumin/Globulin Ratio 1.4 (1.1-1.8); Anion Gap 10.2 mEq/L (5-15); Calcium 9.2 mg/dl (8.4-10.2); Carbon Dioxide 26 mmol/L (22.0-30.0); Globulin 2.9 g/dL (1.3-3.2); Glucose 111 mg/dl (74-100)
[2023-10-28] MEDS: LACTATED RINGERS 1000ML 500 ML 999 ML IV (16:37)
[2023-10-28] MEDS: ONDANSETRON 4MG/2ML VIAL 4 MG IV (16:37)
[2023-10-28 16:45] LABS: Troponin I < 0.01 ng/ml (0.00-0.034)
[2023-10-28 19:26] LABS: Troponin I < 0.01 ng/ml (0.00-0.034)
== END 2023-10-28 20:13 | disposition home or self-care (01) ==
PROVIDERS: Emergency Provider Emergency Medicine; PCP Internal Medicine Adolescent Medicine
DX: R11.2 Nausea with vomiting, unspecified (principal); R42 Dizziness and giddiness; I10 Essential (primary) hypertension; E03.9 Hypothyroidism, unspecified
CPT/HCPCS: 70450; 71045; 80053; 84484; 85025; 93005; 96361; 96374; 99285; J2405; J7120

== ENCOUNTER 2023-10-31 07:52 | Outpatient (CLI) | payer MEDICARE, SELFPAY ==
--- NOTE | 2023-10-31 07:56 | CT_ITS ---
FINAL REPORT CLINICAL HISTORY: ASYMMETRIC BLOOD PRESSURE,ABN CXR COMPARISON: None FINDINGS: CT ABDOMEN, CT PELVIS, CTA ABDOMEN, CTA PELVIS AND CTA LOWER EXTREMITY RUNOFF COMPARISON: TECHNIQUE: Thin section axial CT with IV contrast supplemented with 3D MIP reconstruction under CT Angiogram protocol FINDINGS: CT ANGIOGRAM ABDOMEN AND PELVIS: Abdominal aorta shows no significant stenosis, aneurysm or dissection. Central mesenteric and renal arteries are widely patent. Iliac vessels show no significant stenosis, dissection or aneurysm. CTA RIGHT LOWER EXTREMITY: The femoral and popliteal vessels showed no significant stenosis or occlusion. There is three-vessel runoff of the calf. CTA LEFT LOWER EXTREMITY: The femoral and popliteal vessels show no significant stenosis or occlusion. There is three-vessel runoff of the calf. Abdomen: Solid abdominal organs are grossly unremarkable. Bilateral renal cysts are present. No bowel obstruction is seen. There is no free fluid or free air. Pelvis: Pelvic bowel loops are unremarkable. No mass or fluid collection is seen. IMPRESSION: No significant arterial inflow or outflow disease of the lower extremities This study was performed using automated techniques to achieve radiation exposure as low as reasonably achievable Reviewed, Interpreted and Dictated by Andres Cardona MD Transcribed by Cathy Cisneros Authenticated and [facility]
--- NOTE | 2023-10-31 07:56 | CT_ITS ---
FINAL REPORT TECHNIQUE: After the administration of intravenous contrast, axial images through the chest were performed by computed tomography.This study was performed with techniques to keep radiation doses as low as reasonably achievable, (ALARA). Individualized dose reduction techniques using automated exposure control or adjustment of mA and/or kV according to the patient''s size were employed. CLINICAL HISTORY: ABN CHEST X-RAY COMPARISON: None FINDINGS: There is no axillary adenopathy. There is no hilar or mediastinal adenopathy. The heart size is normal. There is no pericardial or pleural effusion. Limited images of the upper abdomen are unremarkable. There is scarring with calcifications present in the left midlung involving the lingula, without evidence of active pneumonia or a focal pulmonary mass. IMPRESSION: Scarring with calcifications are present in the left lingula, without evidence of active pneumonia or focal pulmonary mass. Reviewed, Interpreted and Dictated by Andres Cardona MD Transcribed by Cathy Cisneros Authenticated and [facility]
[2023-10-31] MEDS: 0.9 % SODIUM CHLORIDE 50 ML VIAL IV (09:08)
[2023-10-31] MEDS: IOPAMIDOL-370 (76%);100ML BOTTLE 195 ML IV (09:08)
[2023-10-31] MEDS: SODIUM CHLORIDE 0.9% 10ML SYR (RAD ONLY) 10 ML IV (09:08)
== END 2023-10-31 23:59 | disposition home or self-care (01) ==
LOC: RAD 07:52
PROVIDERS: PCP Internal Medicine Adolescent Medicine; Visit Provider Internal Medicine Adolescent Medicine
DX: I99.8 Other disorder of circulatory system (principal); R93.89 Abnormal findings on diagnostic imaging of other specified body structures
CPT/HCPCS: 71260; 75635; Q9967

== ENCOUNTER 2024-02-08 13:42 | Outpatient (CLI) | payer MEDICARE, SELFPAY ==
--- NOTE | 2024-02-08 13:44 | MM_ITS ---
PROCEDURE INFORMATION: Exam: MG Bilateral Screening 3D Mammography Exam date and time: 02/08/2024 1:40 PM Age: 68 years old Clinical indication: Screening examination TECHNIQUE: Imaging protocol: Bilateral Screening tomosynthesis and 2D mammography including computer-aided detection (CAD) when performed. COMPARISON: 1. MG MM DIG SCREENING MAMM BI W/CAD 04/15/2021 7:59 AM 2. MG MM DIG SCREENING MAMM BI W/CAD 03/26/2020 9:03 AM FINDINGS: MAMMOGRAPHY: Breast composition: The breasts are almost entirely fatty. Mass: Indistinct 0.7 cm mass in the lateral aspect of the right breast located approximately 12-13 cm from the nipple. Architectural distortion: None. Calcifications: No suspicious calcifications. Asymmetric density: None. Skin thickening: None. Axillary adenopathy: None. IMPRESSION: Patient to be recalled for spot compression views of the right breast in the CC and MLO projections, a full 90 degree lateral view, and potential right breast ultrasound for further evaluation of a right breast mass. ASSESSMENT: BI-RADS Category 0: Incomplete- Need Additional Imaging Evaluation.
== END 2024-02-08 23:59 | disposition home or self-care (01) ==
LOC: RAD 13:42
PROVIDERS: PCP Internal Medicine Adolescent Medicine; Visit Provider Internal Medicine Adolescent Medicine
DX: Z12.31 Encounter for screening mammogram for malignant neoplasm of breast (principal)
CPT/HCPCS: 77063; 77067

== ENCOUNTER 2024-03-05 12:45 | Outpatient (CLI) | payer MEDICARE, SELFPAY ==
--- NOTE | 2024-03-05 12:50 | MM_ITS ---
PROCEDURE INFORMATION: Exam: MG Right Diagnostic Breast Tomosynthesis Exam date and time: 03/05/2024 12:46 PM Age: 68 years old Clinical indication: Callback from screening mammogram dated 02/08/2024 for a right breast finding. TECHNIQUE: Imaging protocol: Right Diagnostic tomosynthesis and 2D mammography including computer-aided detection (CAD) when performed. Unilateral or bilateral exam. COMPARISON: 1. MG MM DIG SCREENING MAMM BI W/CAD 02/08/2024 1:40 PM 2. MG MM DIG SCREENING MAMM BI W/CAD 04/15/2021 7:59 AM FINDINGS: MAMMOGRAPHY: Breast composition: The breasts are almost entirely fatty (based on the most recent screening mammogram report). Breast mammogram findings: Spot compression views of the right breast demonstrate an indistinct persistent mass in the lateral posterior aspect of the right breast, approximately 10 cm from the nipple measuring 0.7 cm. IMPRESSION: Mass in the right breast is indeterminate. Further evaluation with ultrasound is recommended. ASSESSMENT: BI-RADS Category 0: Incomplete- Need Additional Imaging Evaluation.
== END 2024-03-05 23:59 | disposition home or self-care (01) ==
LOC: RAD 12:47
PROVIDERS: PCP Internal Medicine Adolescent Medicine; Visit Provider Internal Medicine Adolescent Medicine
DX: R92.8 Other abnormal and inconclusive findings on diagnostic imaging of breast (principal)
CPT/HCPCS: 77061; 77065; G0279

== ENCOUNTER 2024-03-12 13:13 | Outpatient (CLI) | payer MEDICARE, SELFPAY ==
--- NOTE | 2024-03-12 13:16 | US_ITS ---
PROCEDURE INFORMATION: Exam: US Right Breast, Complete Exam date and time: 03/12/2024 1:16 PM Age: 68 years old Clinical indication: Callback from screening mammogram for a mass in the right breast. TECHNIQUE: Imaging protocol: Complete ultrasound of all four quadrants of the right breast and the retroareolar regions, including ultrasound of the axilla when performed. COMPARISON: MG MM DIG MAMM DX UNILAT RT CAD 03/05/2024 12:46 PM FINDINGS: ULTRASOUND: Breast ultrasound findings: In the right breast 9 o'clock axis, 12 cm from the nipple, there is an indistinct hyperechoic mass measuring 1.0 x 1.1 x 0.6 cm. There is questionable associated shadowing. This is believed to correlate to the mammogram finding. Ultrasound-guided needle biopsy is recommended. (At the time of biopsy, a tissue marker should be placed and a diagnostic follow-up mammogram should be performed to ensure that the tissue marker is at the site of the mammographically visualized mass seen on 02/08/2024 and 03/05/2024.) The remainder of the right breast demonstrates no other finding. There is no axillary adenopathy. IMPRESSION: Indeterminate mass in the right breast 9 o'clock axis, 12 cm from the nipple which is believed to correlate to the finding of concern on screening mammogram. Ultrasound-guided needle biopsy is recommended, please see above. ASSESSMENT: BI-RADS Category 4: Suspicious.
== END 2024-03-12 23:59 | disposition home or self-care (01) ==
LOC: RAD 13:13
PROVIDERS: PCP Internal Medicine Adolescent Medicine; Visit Provider Internal Medicine Adolescent Medicine
DX: R92.8 Other abnormal and inconclusive findings on diagnostic imaging of breast (principal)
CPT/HCPCS: 76641

== ENCOUNTER 2024-04-02 10:16 | Outpatient (CLI) | payer MEDICARE, SELFPAY ==
--- NOTE | 2024-04-02 | US_ITS ---
FINAL REPORT CLINICAL HISTORY: RT BREAST MASS -- RT BREAST BX 900 --MARGARITO MORALES -- MAMMATOME FINDINGS: ULTRASOUND-GUIDED RIGHT BREAST CORE BIOPSY TECHNIQUE: Limited images were obtained to localize region of interest. The right breast was prepped in a routine sterile fashion and locally anesthetized with 1% lidocaine. Standard written informed consent was obtained. An 11-gauge vacuum assisted hand-held device was utilized. Hyperechoic lesion was again demonstrated at approximately 9:00. The needle was positioned posterior to the lesion. Multiple vacuum assisted core samples were obtained. The lesion was noted to be significantly smaller following biopsy. A biopsy marker clip was deployed in satisfactory position. Postbiopsy mammogram showed postbiopsy changes with clip in satisfactory position. Procedure was well tolerated . CONCLUSION: 1. Technically successful ultrasound guided vacuum assisted core biopsy of right breast lesion as above. 2. Biopsy marker clip deployed Authenticated and [facility]
== END 2024-04-02 23:59 | disposition home or self-care (01) ==
LOC: RAD 10:17
PROVIDERS: PCP Internal Medicine Adolescent Medicine; Visit Provider Internal Medicine Adolescent Medicine
DX: N63.15 Unspecified lump in the right breast, overlapping quadrants (principal); R92.8 Other abnormal and inconclusive findings on diagnostic imaging of breast
CPT/HCPCS: 19083; 77065; 88305; 88341; 88342; 88360; C2618

== ENCOUNTER 2024-04-10 13:53 | Outpatient (CLI) | payer MEDICARE, SELFPAY ==
[2024-04-10 14:59] LABS: Basophils # 0.1 K/mm3 (0-0.2); Basophils % 0.8 % (0.1-2.0); Chloride 108 mmol/L (98-107); Eosinophils # 0.1 K/mm3 (0.0-0.4); Eosinophils % 2.1 % (0.1-12.0); Hematocrit 40.2 % (37.0-47.0); Hemoglobin 13.4 g/dL (12.2-16.2); Lymphocytes % 29.9 % (10-50); Mean Corpuscular HGB Conc 33.3 g/dL (31.8-35.4); Mean Corpuscular Hemoglobin 32.9 pg (27.0-31.2); Mean Corpuscular Volume 98.6 fl (81-99); Mean Platelet Volume 8.4 fl (7.4-10.4); Monocytes # 0.4 K/mm3 (0.1-1.0); Monocytes % 6.3 % (1.7-9.3); Platelet Count 256 K/mm3 (142-424); Potassium 4.9 mmoL/L (3.5-5.1); Red Blood Count 4.07 M/mm3 (4.20-5.40); Red Cell Distribution Width 13.1 % (11.5-17.5); Sodium 139 mmol/L (136-145); White Blood Count 6.5 K/mm3 (4.8-10.8)
[2024-04-10 15:02] LABS: Anion Gap 9.9 mEq/L (5-15); Blood Urea Nitrogen 20 mg/dl (7-17); Calcium 9.3 mg/dl (8.4-10.2); Carbon Dioxide 26 mmol/L (22.0-30.0); Estimated Glomerular Filt Rate 50 ml/min (>60); GFR (African American) 60 ML/MIN (>60); Glucose 116 mg/dl (74-100)
--- NOTE | 2024-04-10 15:32 | ECG_ITS ---
APPROVED REPORT Exam: Resting ECG HR:75 bpm ECG Measurements Heart Rate 75 AXES CO 164 P 57 QRSd 81 QRS 79 QT 346 T 20 QTc 375 Conclusion SINUS RHYTHM LOW QRS VOLTAGE IN PRECORDIAL LEADS [QRS DEFLECTION < 1.0 mV IN CHEST LEADS] BORDERLINE ECG UNCONFIRMED REPORT Electronically signed by : Matias Lemon MD 04/10/2024 20:54:12
== END 2024-04-10 23:59 | disposition home or self-care (01) ==
LOC: PREOP 13:54
PROVIDERS: PCP Internal Medicine Adolescent Medicine; Visit Provider Surgery
DX: Z01.810 Encounter for preprocedural cardiovascular examination (principal); N63.15 Unspecified lump in the right breast, overlapping quadrants; R11.0 Nausea; R94.31 Abnormal electrocardiogram [ECG] [EKG]
CPT/HCPCS: 80048; 85025; 93005

== ENCOUNTER 2024-04-12 08:02 | Day surgery (SDC) | payer MEDICARE, SELFPAY ==
[2024-04-10 14:24] VITALS: BMI 41.6
[2024-04-12] VITALS (11 sets, daily range): BP systolic 103–131; BP diastolic 62–82; PULSE 67–115; RESP 16–20; TEMP 36.1–36.3; O2SAT 91–98
[2024-04-12] MEDS: 0.9 % SODIUM CHLORIDE 1000ML 1,000 ML 25 ML IV (08:36)
--- NOTE | 2024-04-12 08:51 | US_ITS ---
FINAL REPORT CLINICAL HISTORY: rt breast mass -- RT BREAST NEEDLE LOC -- MARGARITO MORALES -- 900 BREAST MASS FINDINGS: Ultrasound guided hookwire localization right breast History: Planned lumpectomy. Invasive breast cancer. Technique: Using sonographic guidance the recently biopsied hyperechoic lesion of the right breast was localized. Biopsy marker clip was faintly visualized. Standard written informed consent was obtained. Sterile technique was utilized. Local anesthesia was applied. A 20-gauge Kopan's needle was directed toward the lesion from a lateral approach. Hookwire was noted deployed through the lesion. A post wire localization mammogram was obtained which showed the tip of the hookwire to be adjacent but not passing through the lesion of interest. In addition there was a focal asymmetry posterior to the biopsy marker clip which was an abnormality described on the initial mammographic workup. Ultimately a 2nd hookwire was placed to bracket the abnormalities. This was done via mammographic guidance. IMPRESSION: Technically successful ultrasound directed placement of localization wire toward biopsy marker clip Findings reviewed with Dr. Samuels Authenticated and [facility]
--- NOTE | 2024-04-12 08:56 | EXP.ANES.CKL ---
[facility] Disclaimer: The information contained in this section may have been updated after the patient was seen, as this information can be updated by other users. Medical History History of gastroesophageal reflux (GERD) History of hypertension History of hypothyroidism Surgical History History of bariatric surgery History of colonoscopy History of Family History Other Family history of OR (myocardial infarction) Family history of diabetes mellitus Family history of hypertension Social History Smoking Status: Never smoker second hand exposure: No alcohol intake: never substance use type: denies use current occupational status: retired Travel in the last 8 weeks: None household members: spouse housing: house current occupation: [employer] current occupational exposures/hazards: Yes caffeine: Yes [facility] Anesthesia Checklist Patient Identification Patient Identification: Arm Band Structural Data Admitted From: Home Planned Operative Procedure/s: Right Breast Needle Localization Excisional Biopsy Consent for Planned Operative Procedure(s) Verified: Yes Verified Documents: Surgical Consent and History and Physical NPO Status Verified Time NPO: 00:00 Additional verifications Anesthesia Reactions: No Hx Blood Transfusions: No Blood Transfusion Reaction: No Airway Assessment Mallampati Score:: Class II C-Spine Mobility Assessed: Yes TMJ Mobility Assessed: Yes Dentition: Good Dentition Neurological Assessment Level of Consciousness: Awake, Alert and Appropriate Anesthesia Plan Anesthesia Risk discussed: Yes Anesthesia Plan: Verified ASA Class: II Anesthesia Type: General
--- NOTE | 2024-04-12 10:11 | MM_ITS ---
FINAL REPORT CLINICAL HISTORY: 2 view mammogram s/p need loc in Ultrasound FINDINGS: MAMMOGRAM LEFT TECHNIQUE: Standard digital 2-D views COMPARISON: None DENSITY: There are scattered areas of fibroglandular density FINDINGS: 2 separate localization wires are identified. One enters from a lateral approach with tip just short of a biopsy marker clip deployed from recent ultrasound directed biopsy. A 2nd localization wire for a bracketed approach is seen entering from a superior approach coursing along the posterior margin and medial to a focal asymmetry. IMPRESSION: Localization wires in position as above. Images reviewed with Dr. Samuels. ASSESSMENT: A post-procedure mammogram is used to confirm the position and deployment of localization wires Authenticated and [facility]
[2024-04-12] MEDS: TC99M SULF.COLLOID;1 DOSE (UP TO 20 MCI) IV (11:00)
--- NOTE | 2024-04-12 11:04 | MM_ITS ---
FINAL REPORT CLINICAL HISTORY: needle localization FINDINGS: Wire localization placement History: Breast cancer. Plan lumpectomy Technique: Patient had invasive breast cancer identified on recent ultrasound directed biopsy. Wire localization performed under sonographic guidance done earlier same day shows hookwire adjacent to biopsy marker clip. However there is a separate focal asymmetry described as abnormal on recent diagnostic mammogram. In an effort to better localize both lesions a bracketed 2nd wire was placed under mammographic sterile guidance. The abnormality was localized on cc view. A 20-gauge Kopan needle was directed from a superior to inferior approach toward the focal asymmetry. On lateral view the wire was then deployed at appropriate depth. IMPRESSION: Technically successful placement of 2nd localization wire creating a bracketed approach using mammographic guidance Authenticated and [facility]
--- NOTE | 2024-04-12 11:39 | NM_ITS ---
FINAL REPORT CLINICAL HISTORY: mass 11:00 am 1.44 mci rt breast sub q FINDINGS: SENTINEL NODE INJECTION HISTORY: Breast neoplasm FINDINGS: After informed consent was obtained and time-out procedure performed, approximately 1.44 mCi of technetium 99m sulfur colloid was injected intradermally into the right breast. Injections were performed in a periareolar fashion from the 9:00 to 3:00 positions clockwise. No films were obtained during this procedure. The patient tolerated the procedure with no immediate competition. IMPRESSION: Paterson node injection of the right breast as discussed above. Films reviewed , interpreted and dictated by Dr. Cardona. Transcribed by Bryce Olvera PA-C. Reviewed, Interpreted and Dictated by Andres Cardona MD Transcribed by DEANNA Bae Authenticated and [facility]
[2024-04-12] MEDS: CLINDAMYCIN PHOSPHATE/D5W 900 MG/50 ML PIGGYBACK 100 MG IV (11:52)
--- NOTE | 2024-04-12 11:52 | P.OP_ITS ---
Date of procedure: 04/12/24 Pre-op Diagnosis:: Right breast cancer Post-op Diagnosis:: Same Procedure performed:: Needle localized excisional biopsy of right breast cancer Right axillary sentinel lymph node biopsy Surgeon:: Guero Olivares MD POACHER WRINGER OPERATOR:: Bryce Oliva Anesthesia: GETA Estimated blood loss (mL): 25 Operative findings:: Radioisotope injected per the radiology department resulted in no appreciable axillary uptake Methylene blue resulted in very faint uptake Palpably-enlarged lymph nodes excised Radiographic confirmation of mass lesion and clip in specimen Operative note:: After informed consent was obtained the patient was taken to the radiology department where 2 separate localization needles were placed under ultrasound and mammogram. Please see procedure report for detail. While in the radiology department the patient underwent injection of radioisotope. Please see separate report for detail. After delay to allow for radioisotope uptake the patient was transferred to the operative suite. General anesthesia was induced and her right breast and axilla were prepped and draped in a sterile fashion after peritumoral injection of methylene blue. The neoprobe device was utilized to evaluate the axilla and surrounding region. Background uptake within the breast noted; however, no appreciable axillary uptake noted despite repeat evaluation after additional time was allowed to pass. An incision along the mid inferior axillary margin was completed after infiltration of local anesthetic. The deep subcutaneous tissue was dissected with electrocautery. A portion of this tissue was resected and passed off for pathologic evaluation as non-sentinel right axillary tissue . Palpably-enlarged lymph nodes were elevated and excised. 2 adjacent enlarged lymph nodes were transected. Very faint methylene blue uptake noted. An additional deeper lymph node was then elevated. This palpably- enlarged lymph node was excised from surrounding tissue. Transection revealed no appreciable methylene blue uptake. All the above-stated lymph nodes were separately evaluated for possible radioisotope uptake (none noted). Palpation within the axilla revealed no additional obviously enlarged lymph nodes. Electrocautery was utilized to achieve hemostasis. The wound was irrigated. The deep subcutaneous tissue was reapproximated with 2-0 Vicryl and skin was closed with 3-0 Monocryl STRATAFIX in a running subcuticular manner. Dressings were applied. Attention was then turned to the breast. After infiltration with local anesthetic at the site of lateral localization needle exit a slightly curvilinear incision was made. The localization needle was brought through the incision. The deep subcutaneous tissue and underlying breast tissue was transected with a combination of electrocautery and scissors. Dissection continued posteriorly as the second localization needle was confirmed to be within the single specimen. The entire specimen with both attached needles was resected and passed off for radiographic and pathologic evaluation after being marked for margin. Non-dyed Vicryl was utilized to gareth the superficial and deep margins (short superficial/long deep). This superior and lateral margins were marked with dyed Vicryl suture (short superior/long lateral). Radiographic confirmation of resection of prior clip, lesion, and both localization needles was obtained. Electrocautery was utilized to achieve hemostasis. Metallic clips were placed along the wound base and margin. The deep subcutaneous tissue was reapproximated with Vicryl suture and skin was then closed with 3-0 Monocryl STRATAFIX in a running subcuticular manner. Dressings were applied and the patient was transferred to recovery in stable condition after reversal of her anesthetics. Condition: stable Disposition: PACU Specimens:: Right axillary sentinel lymph nodes (faint methylene blue uptake; no radioisotope uptake) Right axillary non-sentinel lymph node Nonsentinel right axillary tissue Needle-localized right breast excisional biopsy Complications:: No immediate Breast Cancer SLNB [place] Node Biopsy Operation performed with curative intent: Yes Tracers used in non-neoadjuvant setting to identify nodes: Dye and Radioactive tracer Tracer used to identify nodes in neoadjuvant setting: N/A All nodes at end of dye-filled lymphatic channel removed: N/A (Dye-filled lymphatic channel not visible) All significantly radioactive nodes were removed: N/A (Radioisotope tracer injected per the radiology department resulted in no appreciable uptake in the axilla) All palpably suspicious nodes were removed: Yes Biopsy positive nodes marked prior to chemo were removed: N/A Colon Resection Synoptic Operative Report Operation performed with curative intent: Yes Primary Cutaneous Melanoma WLE Wide Local Excision Operation performed with curative intent: Yes
[2024-04-12] MEDS: METHYLENE BLUE 0.5% 10ML AMPULE 50 MG IV (12:18)
[2024-04-12] MEDS: LIDOCAINE 1% 20ML MDV 20 ML (12:18)
[2024-04-12] MEDS: SODIUM CHLORIDE 0.9% 20ML VIAL 20 ML IV (12:18)
--- NOTE | 2024-04-12 13:32 | MM_ITS ---
FINAL REPORT CLINICAL HISTORY: .surgical specimen FINDINGS: Specimen radiograph: History: Recent lumpectomy Findings: Specimen radiograph shows a biopsy marker clip in position. There are 2 separate localization wires is identified. 2 separate areas of focal asymmetry are identified within the tissue specimen. Presumably one of these corresponds to the mammographic focal asymmetry. IMPRESSION: Technically successful hookwire localization of biopsy marker clip as well as mammographic abnormality Authenticated and ERN
--- NOTE | 2024-04-12 14:43 | EXP.ANES.I ---
[facility] Anesthesia Record Part I Anesthesia Record I Intake, IV Amount: 800 Hydration: Adequate Estimated blood loss (mL): 100 Urine output (mL): 0 Blood Products used (#): none Blood Pressure: 103/73 SaO2: 93 Pulse Rate: 115 Airway Patency: Patent Respiratory Rate: 18 Temperature: 97.4 F Patient is:: Awake (Talking), Drowsy and Stable Stable to PACU at:: 14:38
[2024-04-12] MEDS: MEPERIDINE 25MG/ML 1ML SYRINGE 25 MG IV (14:53)
--- NOTE | 2024-04-15 11:47 | EXP.COCOPNOT ---
Date of procedure: 04/16/24 Pre-op Diagnosis:: Right breast cancer Post-op Diagnosis:: Same Procedure performed:: Needle localized excisional biopsy of right breast cancer Right axillary sentinel lymph node biopsy Surgeon:: Guero Olivares MD SIGNAL CONSTRUCTOR:: Bryce Oliva Anesthesia: GETA Estimated blood loss (mL): 25 Operative findings:: Radioisotope injected per the radiology department resulted in no appreciable axillary uptake Methylene blue resulted in very faint uptake Palpably-enlarged lymph nodes excised Radiographic confirmation of mass lesion and clip in specimen Operative note:: After informed consent was obtained the patient was taken to the radiology department where 2 separate localization needles were placed under ultrasound and mammogram. Please see procedure report for detail. While in the radiology department the patient underwent injection of radioisotope. Please see separate report for detail. After delay to allow for radioisotope uptake the patient was transferred to the operative suite. General anesthesia was induced and her right breast and axilla were prepped and draped in a sterile fashion after peritumoral injection of methylene blue. The neoprobe device was utilized to evaluate the axilla and surrounding region. Background uptake within the breast noted; however, no appreciable axillary uptake noted despite repeat evaluation after additional time was allowed to pass. An incision along the mid inferior axillary margin was completed after infiltration of local anesthetic. The deep subcutaneous tissue was dissected with electrocautery. A portion of this tissue was resected and passed off for pathologic evaluation as non-sentinel right axillary tissue . Palpably-enlarged lymph nodes were elevated and excised. 2 adjacent enlarged lymph nodes were transected. Very faint methylene blue uptake noted. An additional deeper lymph node was then elevated. This palpably-enlarged lymph node was excised from surrounding tissue. Transection revealed no appreciable methylene blue uptake. All the above-stated lymph nodes were separately evaluated for possible radioisotope uptake (none noted). Palpation within the axilla revealed no additional obviously enlarged lymph nodes. Electrocautery was utilized to achieve hemostasis. The wound was irrigated. The deep subcutaneous tissue was reapproximated with 2-0 Vicryl and skin was closed with 3-0 Monocryl STRATAFIX in a running subcuticular manner. Dressings were applied. Attention was then turned to the breast. After infiltration with local anesthetic at the site of lateral localization needle exit a slightly curvilinear incision was made. The localization needle was brought through the incision. The deep subcutaneous tissue and underlying breast tissue was transected with a combination of electrocautery and scissors. Dissection continued posteriorly as the second localization needle was confirmed to be within the single specimen. The entire specimen with both attached needles was resected and passed off for radiographic and pathologic evaluation after being marked for margin. Non-dyed Vicryl was utilized to gareth the superficial and deep margins (short superficial/long deep). This superior and lateral margins were marked with dyed Vicryl suture (short superior/long lateral). Radiographic confirmation of resection of prior clip, lesion, and both localization needles was obtained. Electrocautery was utilized to achieve hemostasis. Metallic clips were placed along the wound base and margin. The deep subcutaneous tissue was reapproximated with Vicryl suture and skin was then closed with 3-0 Monocryl STRATAFIX in a running subcuticular manner. Dressings were applied and the patient was transferred to recovery in stable condition after reversal of her anesthetics. Condition: stable Disposition: PACU Specimens:: Right axillary sentinel lymph nodes (faint methylene blue uptake; no radioisotope uptake) Right axillary non-sentinel lymph node Nonsentinel right axillary tissue Needle-localized right breast excisional biopsy Complications:: No immediate Breast Cancer SLNB Operation performed with curative intent: Yes Tracers used in non-neoadjuvant setting to identify nodes: Dye and Radioactive tracer Tracer used to identify nodes in neoadjuvant setting: N/A All nodes at end of dye-filled lymphatic channel removed: N/A (Dye-filled lymphatic channel not visible) All significantly radioactive nodes were removed: N/A (Radioisotope tracer injected per the radiology department resulted in no appreciable uptake in the axilla) All palpably suspicious nodes were removed: Yes Biopsy positive nodes marked prior to chemo were removed: N/A
--- NOTE | 2024-04-16 07:33 | EXP.ANES.II ---
[facility] Anesthesia Record Part II Anesthesia Record Part II Discharge Time: 15:13 Destination: Surgical Day Care (OP Surgery) PACU nurse assessment reviewed?: Yes Patient Condition:: Good Anesthesia Complications:: None Swallowing reflex intact?: Yes Airway Patency: Patent Cyanosis?: No Blood Pressure: 112/72 SaO2: 94 Respiratory Rate: 20 Pulse Rate: 80 Temperature: 97.4 F Mental Status: Alert & Oriented Pain level:: 3 Nausea and/or vomitting:: None Intake, IV Amount: 800 Hydration: Adequate
[2024-04-16 07:35] VITALS: BP 112/72; PULSE 80; RESP 20; TEMP 36.3; O2SAT 94
== END 2024-04-12 15:44 | disposition home or self-care (01) ==
PROVIDERS: PCP Internal Medicine Adolescent Medicine; Visit Provider Surgery
PROC: (CPT 19301; principal; 2024-04-12 11:00)
DX: C50.811 Malignant neoplasm of overlapping sites of right female breast (principal); Z17.0 Estrogen receptor positive status [ER+]
CPT/HCPCS: 19125; 38525; 19281; 19285; 38792; 76098; 77061; 77065; 88304; 88305; 88307; 96374; A9541; G0279; J0736; J1100; J2175; J2250; J2405; J3010; J7030

== ENCOUNTER 2024-04-26 08:07 | Outpatient (CLI) | payer MEDICARE, SELFPAY ==
--- NOTE | 2024-04-26 08:11 | XR_ITS ---
FINAL REPORT CLINICAL HISTORY: Pain COMPARISON: none FINDINGS: Two views of the right humerus show no evidence of an acute, displaced fracture or dislocation of the visualized bony architecture. The joint spaces appear normal. IMPRESSION: Unremarkable exam. Reviewed, Interpreted and Dictated by Andres Cardona MD Transcribed by Sylwia Stearns Authenticated and [facility]
== END 2024-04-26 23:59 | disposition home or self-care (01) ==
LOC: RAD 08:09
PROVIDERS: PCP Internal Medicine Adolescent Medicine; Visit Provider Internal Medicine Medical Oncology
DX: C50.811 Malignant neoplasm of overlapping sites of right female breast (principal); Z17.0 Estrogen receptor positive status [ER+]
CPT/HCPCS: 73060

== ENCOUNTER 2024-05-22 13:13 | Outpatient (CLI) | payer MEDICARE, SELFPAY ==
[2024-05-22 13:42] LABS: Blood Urea Nitrogen 15 mg/dl (7-17); Estimated Glomerular Filt Rate 55 ml/min (>60); GFR (African American) 67 ML/MIN (>60)
== END 2024-05-22 23:59 | disposition home or self-care (01) ==
LOC: RAD 13:14
PROVIDERS: PCP Internal Medicine Adolescent Medicine; Visit Provider Physician Assistant
DX: M89.8X2 Other specified disorders of bone, upper arm (principal)
CPT/HCPCS: 36415; 82565; 84520

== ENCOUNTER 2024-06-10 10:13 | Outpatient (CLI) | payer MEDICARE, SELFPAY ==
--- NOTE | 2024-06-10 | XR_ITS ---
FINAL REPORT TECHNIQUE: Lumbar spine 3 views CLINICAL HISTORY: HOT SPOT ON BONE SCAN DONE TODAY, BREAST CANCER COMPARISON: None FINDINGS: LUMBAR SPINE: 3 views of the lumbar spine were obtained. There is no prior exam for comparison. There is no acute fracture or malalignment. There is marked disc space narrowing particularly in the lower lumbar spine with vacuum phenomenon present. There is mild posterior spondylolisthesis at the L3-4 level. Vertebral body height is preserved. Bulky osteophytes are present anteriorly particularly at the L1-2 level. Advanced facet sclerosis is present. No acute paraspinal abnormality. IMPRESSION: Multilevel degenerative change in the lumbar spine as described. Reviewed, Interpreted and Dictated by Sai Shen MD Transcribed by Cathy Cisneros Authenticated and [facility]
--- NOTE | 2024-06-10 10:14 | NM_ITS ---
FINAL REPORT CLINICAL HISTORY: breast cancer 10:20AM 27.8 MCI TC MDP COMPARISON: None FINDINGS: EXISTING RELEVANT IMAGING STUDIES: Lumbar spine series was obtained. TECHNIQUE: The patient was injected with 27.8 mCi of technetium 99-[id number]. 3 hour delayed images were obtained. FINDINGS: There is increased uptake present in the upper and mid lumbar spine in the mid thoracic spine. Correlation with radiographs of the lumbar spine reveal advanced degenerative change at the L1-2, L3-4, L4-5, and L5-S1 levels. No definite lytic or blastic lesions are identified. Favor that this increased uptake represents degenerative change. No other abnormal tracer activity is identified to suggest occult fracture or metastatic disease. IMPRESSION: Increased uptake in the lumbar spine and mid thoracic spine is of a pattern that correlates with degenerative change rather than metastasis. Reviewed, Interpreted and Dictated by Sai Sehn MD Transcribed by Cathy Cisneros Authenticated and [facility]
[2024-06-10] MEDS: SODIUM CHLORIDE 0.9% 10ML SYR (RAD ONLY) 10 ML IV (10:27)
[2024-06-10] MEDS: ISOTOPE MDP (BONE);1 DOSE VIAL IV (10:27)
== END 2024-06-10 23:59 | disposition home or self-care (01) ==
LOC: RAD 10:14
PROVIDERS: PCP Internal Medicine Adolescent Medicine; Visit Provider Internal Medicine Medical Oncology
DX: C50.811 Malignant neoplasm of overlapping sites of right female breast (principal); Z17.0 Estrogen receptor positive status [ER+]
CPT/HCPCS: 72100; 78306; A9503

== ENCOUNTER 2024-06-18 08:43 | Outpatient (CLI) | payer MEDICARE, SELFPAY ==
--- NOTE | 2024-06-18 08:44 | XR_ITS ---
FINAL REPORT TECHNIQUE: Bone densitometry calculations of the lumbar spine and left hip were obtained. CLINICAL HISTORY: Bone density scan, pre-treatment protocol COMPARISON: None FINDINGS: Using L1-4, the bone mineral density of the spine is 1.369 g/cm2, corresponding to T-score of 2.9. Using the left hip, the bone mineral density of the femoral neck is 0.830 g/cm2, corresponding to a T-score of -0.2 Using the right hip, the bone mineral density of the femoral neck is 0.866 g/cm?, corresponding to a T-score of 0.2. NOTE: T-score: Standard deviation compared with peak bone mass of young adult mean. *Following the recommendations of the International Society of Bone densitometry, classification of hip BMD is based on the lower of two T-scores; total hip or femoral neck. IMPRESSION: Normal bone mineral density of the lumbar spine and bilateral hips. Reviewed, Interpreted and Dictated by Andres Cardona MD Transcribed by Cathy Cisneros Authenticated and [facility]
== END 2024-06-18 23:59 | disposition home or self-care (01) ==
LOC: RAD 08:44
PROVIDERS: PCP Internal Medicine Adolescent Medicine; Visit Provider Internal Medicine Medical Oncology
DX: Z78.0 Asymptomatic menopausal state (principal); Z13.828 Encounter for screening for other musculoskeletal disorder
CPT/HCPCS: 77080

== ENCOUNTER 2024-08-30 11:00 | Outpatient (RCR) | payer MEDICARE, SELFPAY ==
--- NOTE | 2024-08-15 14:47 | HMH.OTOPEV ---
OT Inpatient Evaluation Rehab OT Outpatient Eval Start: 08/15/24 14:34 Freq: Status: Active Protocol: Document 08/15/24 14:34 [id number] (Rec: 08/15/24 14:46 [id number] E-signed By Kerry Kimble, OT Outpatient Therapy Subjective History Subjective History Pt is a 69 year old female who reports to therapy for initial evaluation to right shoulder. Pt has been experiencing pain off and on in right shoulder for ~2 years . However, within the past month pt's pain has increased. Pt experiences popping/ grinding when she attempts to move her arm above head; pt is right hand dominant. Pt also has complaints of stiffness and difficulty reach full range of motion. Pts' pain does radiate down the bicep area of the arm as well. Pt does have a past medical history of breast cancer. Pt was diagnosed with Right breast cancer in March 2024 requiring a lumpectomy and radiation; she just finished her last radiation tx this month. Pt does demonstrate with decreased AROM and strength at right shoulder. Pt will continue to be seen in order to address deficits. New diagnosis of cancer in past 12 Yes: R breast cancer months? Chief Complaint Pain,Stiff,Weakness Symptom Type Ache,Throb,Sharp,Dull Symptoms Relieved By Rest/Positioning Symptoms Aggravated By Physical Activity,Lifting Prior Functional Limitations None Current Functional Limitations Reaching,Lifting,Housework, Dressing,Driving,Sleeping, Recreation Activity Symptom Description Intermittent,Activity Dependent Level of pain today (0-10) 0 Pain scale - at its best (0-10) 0 Pain scale - at its worst (0-10) 2 Shoulder/Elbow Eval Shoulder Objective Measurements Shoulder ROM Right Shoulder Abduction Active Range of 110 degrees Motion (degrees) Shoulder Flexion Active Range of Motion 128 degrees (degrees) Query Text: Shoulder External Rotation Active Range 72 degrees of Motion (degrees) Shoulder Internal Rotation Active Range 35 degrees of Motion (degrees) Shoulder MMT Shoulder Abduction Strength Grade 4- Good- Shoulder Flexion Strength Grade 4- Good- Shoulder External Rotation Strength 4- Good- Grade Shoulder Internal Rotation Strength 4- Good- Grade Shoulder Strength Patient Testing Sitting Position Elbow Objective Measurements QuickDASH Activities Please rate your ability to do the following activities in the last week by selecting the number below the appropriate response. 1. Open a tight or new jar. Mild difficulty 2. Do heavy nuclear medicine specialist (e.g., wash No difficulty ramos, floors). 3. Carry a shopping bag or briefcase. Mild difficulty 4. Wash your back. Mild difficulty 5. Use a knife to cut food. No difficulty 6. Recreational activities in which you Mild difficulty take some force or impact through your arm, shoulder, or hand (e.g., golf, hammering, tennis, etc.). 7. During the past week, to what extent Slightly has your arm, shoulder or hand problem interfered with your normal social activities with family, friends, neighbors or groups? 8. During the past week, were you Slightly limited limited in your work or other regular daily activites as a result of your arm, shoulder or hand problem? 9. Arm, shoulder or hand pain. Mild 10. Tingling (pins and needles) in your None arm, shoulder or hand. 11. During the past week, how much Mild difficulty difficulty have you had sleeping because of the pain in your arm, shoulder or hand? Quick DASH 19 OT Outpatient Assessment Impairments Problems/Impairments Palpation Tenderness,Impaired Range of Motion,Impaired Strength,Impaired Endurance, Impaired Lifting,Impaired Shower/Bathing,Impaired Household Care,Impaired Recreational Activities, Impaired Work Activities, Subjective C/O Pain Prognosis Rehab Potential Good Clinical Impression Consistent with Diagnosis Yes Short Term Goals Number of Weeks 3 Increase Range of Motion Yes: Flex: 135 Abd: 125 ER: 80 IR: 55 Increase Strength Yes: 4/5 throughout right shoulder Increase Endurance Yes: Pt will tolerate R shoulder exercises for ~20 minutes prior to rest. 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 Decrease Subjective C/O Pain Yes: 0/10 Patient to be Ind w/ Advanced HEP Yes: Advanced strengthening Improve Quick Dash Score Yes: Activities: 10 or below Outpatient Therapy Plan of Care Treatment Plan May Include Therapeutic Exercise Including Home Yes Exercise Program Manual Therapy Techniques Yes Neuromuscular Re-education Yes Therapeutic Activities to Return to Yes Previous Functional/Work Level ADL/Self Care Education Yes Thermal Modalities Yes Electrical Stimulation Yes Ultrasound/Phonophoresis Yes Iontophoresis Yes Orthotics/Bracing/Splinting Yes Massage Yes Eval/Re-Eval Yes Frequency Times per week 2 Duration Number of Weeks 6 Addendums This patient is a candidate for social No or vocational rehab? Patient/Guardian verbally acknowledges Yes understanding of treatment program and consents to further treatment? Patient/Guardian verbally acknowledges Yes understanding of diagnosis, prognosis and goals for treatment? Eval Complexity OT Charge 06803 - Moderate Complexity PHYSICIAN CERTIFICATION: I certify the specified therapy services for Jim Russo are required, authorized, and reviewed every 30 days.
== END 2024-08-30 23:59 | disposition home or self-care (01) ==
LOC: OT 11:00
PROVIDERS: PCP Internal Medicine Adolescent Medicine; Visit Provider Internal Medicine Adolescent Medicine
DX: M25.511 Pain in right shoulder (principal)
CPT/HCPCS: 97010; 97110; 97140; 97166; 97530

== ENCOUNTER 2025-02-10 09:50 | Outpatient (CLI) | payer MEDICARE, SELFPAY ==
--- OUTSIDE RECORDS SUMMARY | 2024-08-10 17:30 | XMS_ITS ---
Author Organization [facility] PE D [facility] Address [address] [place] [address] Care Team Providers Care Police Specialist Name Role Phone Matias Lemon Primary Care Provider Matias Lemon Unavailable Unavailable Migration, Provider Unavailable Unavailable Allergies Allergen (clinical drug ingredient) Drug/Non Drug Allergy documented on EMR Reaction Allergy Type Onset Date Status Penicillin anaphylaxis as infant Drug Allergy Active REASON FOR VISIT [facility] To [facility] Conversion Encounter Medications Medication SIG (Take, Route, Frequency, Duration) Notes Start Date End Date Status Meloxicam 15 MG 1 tab(s) orally once a day; Duration: 90 days Active Terbinafine HCl 250 MG 1 tab(s) orally once a day; Duration: 90 days 02/05/2024 Active Lisinopril 20 MG 1 tab(s) orally twice daily; Duration: 90 days Active Synthroid 150 MCG 1 tab(s) orally once a day; Duration: 90 days Active Magnesium Oxide 400 MG 1 tab(s) orally once daily; Duration: 90 days Active Vitamin D3 25 MCG 1 tab(s) orally once a day; Duration: 90 days 50mcg Active Lasix 20 MG 1 tab(s) orally once a day; Duration: 90 days prn Active Omeprazole 20 MG 1 cap(s) orally once a day; Duration: 90 days Active B-12 1000 MCG 1 tab(s) orally once a day; Duration: 90 days 1500mcg Active Multivitamin - 1 tab(s) orally once a day; Duration: 90 days Active Fish Oil 1200 MG 1 cap(s) orally once a day Active Vitamin C 500 MG 1 tab(s) orally once a day Active HAIR, SKIN, NAILS 5 MG 1 CAP(S) ORALLY ONCE A DAY *Please review for potential replacement for e-prescription and drug interaction check* Active Probiotic 1 TAB PO QD *Please review a nd pick correct strength-formulatio n from Medispan options. If intended option is not shown, discontinue and re-order from Quick Search* Active GLUCOSAMINE CHONDROITIN 20 MG-400 MG-500 MG-2 MG 2 CAPS ORALLY ONCE A DAY *Please review for potential replacement for e-prescription and drug interaction check* Active Encounters Encounter Location Date Provider Diagnosis [facility] IM P[facility] [address] [place] [phone] 08/10/2024 Provider Migration Plan Of Treatment Next Appt Details Provider Name:Matias Lemon, 02/24/2025 11:45:00 AM, [address], [place], [address], Progress Notes * Jim MENDENHALL EDOB:[birth year] (69 yo F)Acc No.[id number]:08/10/2024 Patient: Jim MENDOSA Provider: Anisa rodriguez Migration :1955 A ge:69 Y S ex:Female Date:08/10/2024 Address:[address] [place], [place] [id number] Pcp:Matias Lemon Subjective: * Chief Complaints: * 1 . Multum To Medispan Conversion Encounter. * Medical History: * Medications: T aking Probiotic 1 TAB PO QD , Notes to Pharmacist: *Please review and pick correct strength-formulation from Medispan options. If intended option is not shown, discontinue and re-order from Quick Search*, Taking GLUCOSAMINE CHONDROITIN 20 MG-400 MG-500 MG-2 MG CAPSULE 2 CAPS ORALLY ONCE A DAY , Notes to Pharmacist: *Please review for potential replacement for e-prescription and drug interaction check*, Taking Vitamin C 500 MG Tablet 1 tab(s) orally once a day , Taking HAIR, SKIN, NAILS 5 MG CAPSULE 1 CAP(S) ORALLY ONCE A DAY , Notes to Pharmacist: *Please review for potential replacement for e-prescription and drug interaction check*, Taking Fish Oil 1200 MG Capsule 1 cap(s) orally once a day , Taking Lasix 20 MG Tablet 1 tab(s) orally once a day , Notes to Pharmacist: prn, Taking Vitamin D3 25 MCG Tablet 1 tab(s) orally once a day , Notes to Pharmacist: 50mcg, Taking B-12 1000 MCG Tablet 1 tab(s) orally once a day , Notes to Pharmacist: 1500mcg, Taking Multivitamin - Tablet 1 tab(s) orally once a day , Taking Omeprazole 20 MG Capsule Delayed Release 1 cap(s) orally once a day , Taking Meloxicam 15 MG Tablet 1 tab(s) orally once a day , Taking Synthroid 150 MCG Tablet 1 tab(s) orally once a day , Taking Magnesium Oxide 400 MG Tablet 1 tab(s) orally once daily , Taking Terbinafine HCl 250 MG Tablet 1 tab(s) orally once a day , Taking Lisinopril 20 MG Tablet 1 tab(s) orally twice daily * Allergies: P enicillin: anaphylaxis as . Objective: * Vitals: Assessment: Plan: * Treatment: * * Electronic signature of Prov ider Migration on 02/10/2025 at 09:57 AM EDT Sign off status: Pending * Provider: Anisa rodriguez Migration Date: 0 08/10/2024 Generated for Fady alarcon/Lazaro/Whit on: 1 09:57 AM EDT
--- OUTSIDE RECORDS SUMMARY | 2024-12-17 10:15 | XMS_ITS ---
Author Organization [facility] Address [address] [place] [address] [facility] [place] [address] Care Team Providers Care Parts Counter Representative Name Role Phone Matias Lemon Primary Care Provider Matias Lemon Unavailable Unavailable Allergies Allergen (clinical drug ingredient) Drug/Non Drug Allergy documented on EMR Reaction Allergy Type Onset Date Status Penicillin anaphylaxis as infant Drug Allergy Active REASON FOR VISIT 6 wk FU Medications Medication SIG (Take, Route, Frequency, Duration) Notes Start Date End Date Status Probiotic 1 TAB PO QD \ Active Anastrozole 1 MG 1 tablet Orally Once a day Active Terbinafine HCl 250 MG 1 tab(s) orally o nce a day; Duration: 90 days 02/05/2024 Active GLUCOSAMINE CHONDROITIN 20 MG-400 MG-500 MG-2 MG 2 CAPS ORALLY ONCE A DAY Active Lisinopril 20 MG 1 tab(s) orally twic e daily; Duration: 90 days Active Meloxicam 15 MG 1 tab(s) orally once a day; Duration: 90 days Active Synthroid 137 MCG 1 tab(s) orally once a day; Duration: 90 days Active Magnesium Oxide 400 MG 1 tab(s) orally o nce daily; Duration: 90 days Active Omeprazole 20 MG 1 cap(s) orally once a day; Duration: 90 days Active Multivitamin - 1 tab(s) orally once a day; Duration: 90 days Active Fish Oil 1200 MG 1 cap(s) orally once a day Active HAIR, SKIN, NAILS 5 MG 1 CAP(S) ORALLY O NCE A DAY Active B-12 1000 MCG 1 tab(s) orally once a day; Duration: 90 days 1500mcg Active Vitamin C 500 MG 1 tab(s) orally once a day Active Problems Problem Type SNOMED Code ICD Code Onset Dates Problem Status W/U Status Risk Notes Problem Affective psychosis ([id number]) Unspecified mood [affective] disorder (F39) Active confirmed Vital Signs Temperature 98.4 degrees Fahrenheit 12/18/19 25 Blood pressure systolic 124 mm Hg 12/18/19 25 Blood pressure diastolic 78 mm Hg 025 Heart Rate 78 /min 12/17/2024 Height 5 ft 3 in in 12/17/2024 Weight 208 lbs 12/17/2024 BMI 36.84 kg/m2 12/17/2024 Encounters Encounter Location Date Provider Diagnosis [address] [id number] 12/17/2024 Matias Lemon Acquired hypothyroid ism E03.9 ; Unspecified mood [affective] disorder F39 and Medication side effect T88.7XXA Assessments Encounter Date Diagnosis (ICD Code) Assessment Notes Treatment Notes Treatment Clinical Notes Section Notes 12/17/2024 Acquired hypothyroidism (ICD-10 - E03.9) No overt signs of hyperthyroidism. She does have increased hair loss + \ - palpitations. Will decrease Levothyroxine to 137 mcg and recheck TSH in 2 months 12/17/2024 Unspecified mood [affective] disorder (ICD-10 - F39) Does show some signs of depression. However, does not fit the diagnosis of MDD. Some of her symptoms are likely related to Anastrazole use. Not interested in trialing medications or therapy at this time. Told her to let us know if that ever changed. She was interested in Alzheimers support groups. Informations provided. 12/17/2024 Medication side effect (ICD-10 - T88.7XXA) Side effects to Anastrazole for Breast CA. Experiences hot flashes, mood swings, dizzinees. Tries to combat some of these symptoms by taking it at night. Offered SNRI. She declined but told her it was avialable in the future. Plan Of Treatment Medication Medication Name Sig Start Date Stop Date Notes Synthroid 137 MCG 1 tab(s) orally once a day; Duration: 90 days Treatment Notes Assessment Notes Acquired hypothyroidism No overt signs o f hyperthyroidism. She does have increased hair loss + \ - palpitations. Will decrease Levothyroxine to 137 mcg and recheck TSH in 2 months Unspecified mood [affective] disorder Do es show some signs of depression. However, does not fit the diagnosis of MDD. Some of her symptoms are likely related to Anastrazole use. Not interested in trialing medications or therapy at this time. Told her to let us know if that ever changed. She was interested in Alzheimers support groups. Informations provided. Medication side effect Side effects to A nastrazole for Breast CA. Experiences hot flashes, mood swings, dizzinees. Tries to combat some of these symptoms by taking it at night. Offered SNRI. She declined but told her it was avialable in the future. Next Appt Details Follow Up: 2 Months, Reason: Provider Name:Matias Lemon, 02/24/2025 11:45:00 AM, [address] [facility] [address], [address], [place], [address], Progress Notes * Jim MENDENHALL EDOB:[birth year] (69 yo F)Acc No.[id number]:12/17/2024 Progress Notes Patient: Isak Jim DISLA E Provider: Ivonne Lemon MD :1955 A ge:69 Y S ex:Female Date:12/17/2024 Address:[address] [place] [address] [id number] Subjective: * Chief Complaints: * 1 . 6 wk FU. * HPI: g en: No acute complaints. No palpitations. Has been having hot flashes since taking anastrazole. No increase in bowel movements. Has been losing hair for the past several years. Still doing weight watchers and losing weight steadly. Shes not able to exercise much. She does not tolerate the heat as well. Doing intermittent fasting. Gets upset easily. She thinks its because of the anastrazole. Taking care of sister is the most stressful. Occasionally has a harder time falling asleep, and finds it hard to go back to sleep when she gets up. She started volunteering at [employer] in [place]. Thought about trying to find local Alzheimers support group. Has hotflashes, dizziness + lightheadness with anastrazole. * Medical History: H ypertension, Hypothyroidism, Normal colonoscopy 03/25 and negative cologuard 03/31, Normal mamm 04/27, Normal DEXA scan 01/2022, Breast cancer. * Surgical History: c -section 1987, gastric bypass 2002, colonoscopy 03/2018, cyst removal lt hand 07/2020, lumpectomy 2023, 25 rounds of radiation 2024. * Hospitalization/Major Diagno stic Procedure: a ll above surgeries , [facility] chest pain 08/2016. * Family History: F ather: . M other: alive. P aternal Grand Father: . P aternal Grand Mother: . M aternal Grand Father: . M aternal Grand Mother: . Paternal uncle: . P aternal aunt: . M aternal uncle: alive. S iblings: alive, Thyroid issues, one sister passed from ovarian cancer, diagnosed with Hypertension. C hildren: alive. 5 brother(s) , 2 sister(s) . 2 son(s) , 1 daughter(s) - healthy. . * Medications: T aking Anastrozole 1 MG Tablet 1 tablet Orally Once a day , Taking Probiotic 1 TAB PO QD , Notes to Pharmacist: \, Taking GLUCOSAMINE CHONDROITIN 20 MG-400 MG-500 MG- 2 MG CAPSULE 2 CAPS ORALLY ONCE A DAY , Taking Vitamin C 500 MG Tablet 1 tab(s) orally once a day , Taking HAIR, SKIN, NAILS 5 MG CAPSULE 1 CAP(S) ORALLY ONCE A DAY , Taking Fish Oil 1200 MG Capsule 1 cap(s) orally once a day , Taking B-12 1000 MCG Tablet 1 tab(s) [...] MG Tablet 1 tab(s) orally twice daily , Discontinued Lasix 20 MG Tablet 1 tab(s) orally once a day , Notes to Pharmacist: prn, Discontinued Vitamin D3 25 MCG Tablet 1 tab(s) orally once a day , Notes to Pharmacist: [facility] [place] Medication List reviewed and reconciled with the patient * Allergies: P enicillin: anaphylaxis as . Objective: * Vitals: N urse: dw, Pain: 0, Temp: 98.4, RR: 16, HR: 78, BP: 124/78, Ht: 5 ft 3 in, Wt: 208, BMI:36.84. * Examination: G eneral Examination: General P leasant and Cooperative, NAD on RA,. Heart: R egular Rate and Rhythm, no murmur, rubs or gallops. Lungs: L CTAB, No wheezes, crackles or rhonchi, Good air movement,. Abdomen: S oft, NTND, BSNA, No organomegaly or peritoneal signs.. Assessment: * Assessment: 1. A cquired hypothyroidism - E03.9 (Primary) 2 . U nspecified mood [affective] disorder - F39 3 . M edication side effect - T88.7XXA Plan: * Treatment: 2. U nspecified mood [affective] disorder Notes: Does show some signs of depression. However, does not fit the diagnosis of MDD. Some of her symptoms are likely related to Anastrazole use. Not interested in trialing medications or therapy at this time. Told her to let us know if that ever changed. She was interested in Alzheimers support groups. Informations provided. 3. M edication side effect Notes: Side effects to Anastrazole for Breast CA. Experiences hot flashes, mood swings, dizzinees. Tries to combat some of these symptoms by taking it at night. Offered SNRI. She declined but told her it was avialable in the future. * Follow Up: 2 Months * * Sign off status: Completed true * Provider: Ivonne Lemon MD Date: 0 12/17/2024 Generated for Printi agnes/Lazaro/eTransmitting on: 1 09:56 AM EDT History and Physical Notes * HPI (History of Present Illness) Category Sub-Category Detail Notes Category Not es gen No acute complaints. No palpitations. Has been having hot flashes since taking anastrazole. No increase in bowel movements. Has been losing hair for the past several years. Still doing weight watchers and losing weight steadly. Shes not able to exercise much. She does not tolerate the heat as well. Doing intermittent fasting. Gets upset easily. She thinks its because of the anastrazole. Taking care of sister is the most stressful. Occasionally has a harder time falling asleep, and finds it hard to go back to sleep when she gets up. She started volunteering at [employer] in [place]. Thought about trying to find local Alzheimers support group. Has hotflashes, dizziness + lightheadness with anastrazole. Examination Category Sub-Category Detail Notes Category Not es General Examination Heart: Regular Rate and Rhythm, no murmur, rubs or gallops Lungs: LCTAB, No wheezes, c rackles or rhonchi, Good air movement, Abdomen: Soft, NTND, BSNA, No organomegaly or peritoneal signs. General Pleasant and Coopera tive, NAD on RA,
--- NOTE | 2025-02-10 09:53 | MM_ITS ---
PROCEDURE INFORMATION: Exam: MG Bilateral Screening 3D Mammography Exam date and time: 02/10/2025 10:02 AM Age: 69 years old Clinical indication: Screening examination; Personal history of right breast cancer; Lumpectomy and radiation therapy. TECHNIQUE: Imaging protocol: Bilateral Screening tomosynthesis and 2D mammography including computer-aided detection (CAD) when performed. COMPARISON: 1. MG MM SURGICAL SPECIMEN RT 04/12/2024 1:14 PM 2. MG MM NEEDLE LOC RT 04/12/2024 10:14 AM FINDINGS: MAMMOGRAPHY: Breast composition: There are scattered areas of fibroglandular density. Mass: None. Architectural distortion: Normal postlumpectomy changes are seen on the right including post surgical distortion, benign-type calcifications, parenchymal density, and skin thickening. Calcifications: No suspicious calcifications. Asymmetric density: None. Skin thickening: None. Axillary adenopathy: None. IMPRESSION: No mammographic evidence of malignancy. Annual screening is recommended unless otherwise clinically indicated. ASSESSMENT: BI-RADS Category 2: Benign.
--- OUTSIDE RECORDS SUMMARY | 2025-02-10 09:57 | XMS_ITS | Clinical Summary ---
Author Organization [facility] Address [address] [place] [address] Care Team Providers Care Cotton Opener Name Role Phone Matias Lemon MD Primary Care Provider [phone] Encounters Date Type Department Care Team Description 01/09/2025 Travel from Last 3 Months Social History Tobacco Use Types Packs/Day Years Used Date Smoking Tobacco: Never Assessed Comments Unknown Sex and Gender Information Value Date Recorded Sex Assigned at Not on file Legal Sex Female 5:46 PM EDT Gender Identity Not on file Sexual Orientation Not on file Last Filed Vital Signs Vital Sign Reading Time Taken Comments Blood Pressure 136/98 10/13/2022 5:48 PM EDT Pulse 63 10/13/2022 5:48 PM EDT Temperature - - Respiratory Rate - - Oxygen Saturation - - Inhaled Oxygen Concentration - - Weight 103 kg (228 lb) 10/13/2022 5:48 PM EDT Height 160 cm (5' 3 ) 10/13/2022 5:48 PM EDT Body Mass Index 40.39 10/13/2022 5:48 PM EDT Plan of Treatment Upcoming Encounters Date Type Department Care Team (Late st Contact Info) Description 01/19/2026 10:00 AM EDT Ovarian Cancer Screening [facility] [address] [place] [address] Health Maintenance Due Date Last Done Comments [facility]-Bone Density Scan 1955 [facility]-Depression Screening 1955 [facility]-Hepatitis C Screening 1955 [facility]-Medicare Annual Wellness (AWV) 1955 [facility]-Infant/Child/Adol SDOH Screenings 1955 [facility]-Obesity Intervention 1962 [facility]- SDOH Screenings 1974 [facility]-Adult SDOH Screenings 1974 CT Colonography 2001 Colonoscopy 2001 FIT 2001 FOBT 2001 Sigmoidoscopy 2001 [facility]-Breast Cancer Screening 2006 [id number] Vaccine (7 - Moderna risk season) 2025 02/08/2024, 02/15/2023, 02/18/2022, Additional history exists [facility]-Influenza Vaccine (#1) 01/06/202501/30, 03/13/2023, 02/18/2022 FIT-DNA 03/01/2027 03/01/2024 [facility]-Colorectal Cancer Screening 03/01/2027 [facility]-DTaP,Tdap,and Td Vaccines (2 - Td or Tdap) 01/19/2030 01/20/2020 [facility]-Zoster Vaccines Completed 10/24/2018, 8 [facility]-Pneumococcal Vaccine: 50+ Years Completed 03/13/2023, 07/05/2021 [facility]-RSV Vaccine: 60+ Years or Completed 01/31/2024 HPV Vaccines Aged Out No longer eligi ble based on patient's age to complete this topic [facility]-HIB Vaccines Aged Out No longer e ligible based on patient's age to complete this topic [facility]-Hepatitis A Vaccines Aged Out No longer eligible based on patient's age to complete this topic [facility]-IPV Vaccines Aged Out No longer e ligible based on patient's age to complete this topic [facility]-Rotavirus Vaccines Aged Out No lo nger eligible based on patient's age to complete this topic Insurance MEDICARE AAR Care Teams Cotton Opener Relationship Specialty Start Date End Date Matias Lemon MD [address] [place] [id number] PCP - General Internal Medicine 04/26/24
--- OUTSIDE RECORDS SUMMARY | 2025-02-10 09:57 | XMS_ITS | Patient Health Record ---
Author Organization [facility] Address [address] [place] [address] Care Team Providers Care Surgical Consultant Name Role Phone Matias Lemon Primary Care Provider [phone] Matias Lemon Unavailable Unavailable Migration, Provider Unavailable Unavailable Allergies Allergen (clinical drug ingredient) Drug/Non Drug Allergy documented on EMR Reaction Allergy Type Onset Date Status Penicillin anaphylaxis as Drug Allergy Active Results Component Value Reference Range Notes VITAMIN D,25-OH,TOTAL,IA (17 306) Reviewed date:11/06/2024 02:55:13 PM Interpretation: Performing Lab:G[facility], [facility], [place] HospitalFmtkHJ[address] Derek Interiano Notes/Report: NON-FASTING; NON-FASTING; NON-FASTING; NON-FASTING VITAMIN D,25-OH,TOTAL,IA 72 30-100 ng/mL Vitamin D Status 25-OH Vitamin D: Deficiency: <20 ng/mL Insufficiency: 20 - 29 ng/mL Optimal: > or = 30 ng/mL For 25-OH Vitamin D testing on patients on D2-supplementation and patients for whom quantitation of D2 and D3 fractions is required, the QuestAssureD(TM) 25-OH VIT D, (D2,D3), LC/MS/MS is recommended: order code 52025 (patients >2yrs). See Note 1 Note 1 For additional information, please refer to http://education.MesoCoat/faq/UJO719 (This link is being provided for informational/ educational purposes only.) CBC (INCLUDES DIFF/PLT) (639 9) Reviewed date:11/06/2024 02:55:13 PM Interpretation: Performing Lab:GABY [facility] Tjfr9935 [employer], [place] HospitalVuakGR[address] Derek Interiano Notes/Report: NON-FASTING; NON-FASTING; NON-FASTING; NON-FASTING WHITE BLOOD CELL COUNT 4.3 3.8-10.8 Thousand/ uL RED BLOOD CELL COUNT 4.01 3.80-5.10 Million/uL HEMOGLOBIN 13.5 11.7-15.5 g/dL HEMATOCRIT 42.3 35.0-45.0 % MCV 105.5 80.0-100.0 fL MCH 33.7 27.0-33.0 pg MCHC 31.9 32.0-36.0 g/dL For adults, a slight decrease in the calculated MCHC value (in the range of 30 to 32 g/dL) is most likely not clinically significant; however, it should be interpreted with caution in correlation with other red cell parameters and the patient's clinical condition. RDW 12.0 11.0-15.0 % PLATELET COUNT 185 140-400 Thousand/uL MPV 12.0 7.5-12.5 fL ABSOLUTE NEUTROPHILS [phone] cells/uL ABSOLUTE LYMPHOCYTES 629 115-3005 cells/uL ABSOLUTE MONOCYTES 383 200-950 cells/uL ABSOLUTE EOSINOPHILS 90 15-500 cells/uL ABSOLUTE BASOPHILS 22 0-200 cells/uL NEUTROPHILS 70 LYMPHOCYTES 18.5 MONOCYTES 8.9 EOSINOPHILS 2.1 BASOPHILS 0.5 CBC (INCLUDES DIFF/PLT) (639 9) Reviewed date:08/06/2024 02:01:08 PM Interpretation: Performing Lab:GABY [facility] Edcp[address] [employer], [facility]JchpVG[address] Derek Interiano Notes/Report: NON-FASTING; NON-FASTING; NON-FASTING; NON-FASTING WHITE BLOOD CELL COUNT 3.8 3.8-10.8 Thousand/ uL RED BLOOD CELL COUNT 4.28 3.80-5.10 Million/uL HEMOGLOBIN 14.2 11.7-15.5 g/dL HEMATOCRIT 43.6 35.0-45.0 % MCV 101.9 80.0-100.0 fL MCH 33.2 27.0-33.0 pg MCHC 32.6 32.0-36.0 g/dL For adults, a slight decrease in the calculated MCHC value (in the range of 30 to 32 g/dL) is most likely not clinically significant; however, it should be interpreted with caution in correlation with other red cell parameters and the patient's clinical condition. RDW 12.2 11.0-15.0 % PLATELET COUNT 177 140-400 Thousand/uL MPV 12.1 7.5-12.5 fL ABSOLUTE NEUTROPHILS 2683 5041-9394 cells/uL ABSOLUTE LYMPHOCYTES 268 028-3229 cells/uL ABSOLUTE MONOCYTES 414 200-950 cells/uL ABSOLUTE EOSINOPHILS 68 15-500 cells/uL ABSOLUTE BASOPHILS 30 0-200 cells/uL NEUTROPHILS 70.6 LYMPHOCYTES 15.9 MONOCYTES 10.9 EOSINOPHILS 1.8 BASOPHILS 0.8 COMPREHENSIVE METABOLIC PANE L (76541) Reviewed date:11/06/2024 02:55:13 PM Interpretation: Performing Lab:CB, [facility] Lhxy3391 [facility], [place] HospitalPgpiVD[address] Derek Interiano Notes/Report: NON-FASTING; NON-FASTING; NON-FASTING; NON-FASTING GLUCOSE 83 65-99 mg/dL Fasting reference interval UREA NITROGEN (BUN) 22 7-25 mg/dL CREATININE 1.00 0.50-1.05 mg/dL EGFR 61 > OR = 60 mL/min/1.73m2 BUN/CREATININE RATIO SEE NOTE: 6-22 (calc) Not Reported: BUN and Creatinine are within reference range. SODIUM 137 135-146 mmol/L POTASSIUM 5.1 3.5-5.3 mmol/L CHLORIDE 101 98-110 mmol/L CARBON DIOXIDE 28 20-32 mmol/L CALCIUM 9.8 8.6-10.4 mg/dL PROTEIN, TOTAL 7.1 6.1-8.1 g/dL ALBUMIN 4.6 3.6-5.1 g/dL GLOBULIN 2.5 1.9-3.7 g/dL (calc) ALBUMIN/GLOBULIN RATIO 1.8 1.0-2.5 (calc) BILIRUBIN, TOTAL 0.6 0.2-1.2 mg/dL ALKALINE PHOSPHATASE 85 37-153 U/L AST 33 10-35 U/L ALT 24 6-29 U/L COMPREHENSIVE METABOLIC PANE L (05430) Reviewed date:08/06/2024 02:01:08 PM Interpretation: Performing Lab:GABY [facility] Ihjo4751 [employer], [place] HospitalZpvjWL[address] Derek Interiano Notes/Report: NON-FASTING; NON-FASTING; NON-FASTING; NON-FASTING GLUCOSE 99 65-99 mg/dL Fasting reference interval UREA NITROGEN (BUN) 17 7-25 mg/dL CREATININE 1.04 0.50-1.05 mg/dL EGFR 59 > OR = 60 mL/min/1.73m2 BUN/CREATININE RATIO SEE NOTE: 6-22 (calc) Not Reported: BUN and Creatinine are within reference range. SODIUM 139 135-146 mmol/L POTASSIUM 4.6 3.5-5.3 mmol/L CHLORIDE 103 98-110 mmol/L CARBON DIOXIDE 28 20-32 mmol/L CALCIUM 9.7 8.6-10.4 mg/dL PROTEIN, TOTAL 7.0 6.1-8.1 g/dL ALBUMIN 4.3 3.6-5.1 g/dL GLOBULIN 2.7 1.9-3.7 g/dL (calc) ALBUMIN/GLOBULIN RATIO 1.6 1.0-2.5 (calc) BILIRUBIN, TOTAL 0.5 0.2-1.2 mg/dL ALKALINE PHOSPHATASE 86 37-153 U/L AST 29 10-35 U/L ALT 26 6-29 U/L THYROID PANEL WITH TSH (7444 ) Reviewed date:11/06/2024 02:55:12 PM Interpretation: Performing Lab:GABY [facility] Ubae[address]34 [place], [place] HospitalUkhqAR[address] Derek Interiano Notes/Report: NON-FASTING; NON-FASTING; NON-FASTING; NON-FASTING T3 UPTAKE 35 22-35 % T4 (THYROXINE), TOTAL 11.0 5.1-11.9 mcg/dL FREE T4 INDEX (T7) 3.9 1.4-3.8 TSH 0.05 0.40-4.50 mIU/L Mammogram: Additional/ Magni fy views Reviewed date:03/08/2024 10:15:23 AM Interpretation: Performing Lab: Notes/Report: THYROID PANEL (7020) Reviewed date:08/06/2024 02:01:08 PM Interpretation: Performing Lab:GABY Earth[facility]ke13[address] [facility] OaksMolinaCiouKP[address] Derek Interiano Notes/Report: NON-FASTING; NON-FASTING; NON-FASTING; NON-FASTING T3 UPTAKE 36 22-35 % T4 (THYROXINE), TOTAL 11.2 5.1-11.9 mcg/dL FREE T4 INDEX (T7) 4.0 1.4-3.8 Ultrasound : Breast, Right Reviewed date:03/17/2024 12:05:39 PM Interpretation: Performing Lab: Notes/Report: Ultrasound : Guided Biopsy Reviewed date:04/08/2024 01:16:19 PM Interpretation: Performing Lab: Notes/Report: Reason For Referral Reason Breast Biopsy Referral Organization [facility] Referring Provider First Name Matias Referring Provider Last Name Xochilt Referring Provider Speciality Internal edicine Referral Priority Routine Referral Appointment Date 04/01/2024 Reason [facility] PT eval Diagnosis 1 Pain in right should er (M25.511) Referral Organization [facility] Referring Provider First Name Matias Referring Provider Last Name Xochilt Referring Provider Speciality Internal edicine Referred Organization [facility] Referred Address [address] [place] [address], [place], [place],[address], Referred Provider 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 Ayanna Esquivel 2024 04:53:43 PM >faxed to [facility] Referral Priority Routine Medications Medication SIG (Take, Route, Frequency, Duration) Notes Start Date End Date Status B-12 1000 MCG 1 tab(s) orally once a day; Duration: 90 days 1500mcg Active Terbinafine HCl 250 MG TAKE 1 TABLET BY MOUTH DAILY; Duration: 90 Active Omeprazole 20 MG 1 cap(s) orally once a day; Duration: 90 days Active Magnesium Oxide 400 MG 1 tab(s) orally o nce daily; Duration: 90 days Active Multivitamin - 1 tab(s) orally once a day; Duration: 90 days Active Probiotic 1 TAB PO QD \ Active Anastrozole 1 MG 1 tablet Orally Once a day Active Meloxicam 15 MG 1 tab(s) orally once a day; Duration: 90 days Active Synthroid 137 MCG 1 tab(s) orally once a day; Duration: 90 days Active Vitamin C 500 MG 1 tab(s) orally once a day Active GLUCOSAMINE CHONDROITIN 20 MG-400 MG-500 MG-2 MG 2 CAPS ORALLY ONCE A DAY Active Fish Oil 1200 MG 1 cap(s) orally once a day Active HAIR, SKIN, NAILS 5 MG 1 CAP(S) ORALLY O NCE A DAY Active Lisinopril 20 MG 1 tab(s) orally twic e daily; Duration: 90 days Active Immunizations Vaccine Route Administration Date Status Comme nts SHINGRIX Unknown 04/16/2018 Administered SHINGRIX Unknown 10/24/2018 Administered Prevnar PCV-20 (Pneumococcal conjugate 20) IM Intramuscular 03/13/2023 Administered Pneumovax 23 IM Intramuscular 07/05/2021 Administered Fluzone High Dose IM Intramuscular 02/18/2022 Administered Fluzone High Dose IM Intramuscular 03/13/2023 Administered Fluzone High Dose IM Intramuscular 01/31/2024 Administered Boostrix IM Intramuscular 01/20/2020 Administered Arexvy IM Intramuscular 01/31/2024 Administered Problems Problem Type SNOMED Code ICD Code Onset Dates Problem Status W/U Status Risk Notes Problem Malignant neoplasm of upper-outer quadrant of female breast (969714824) 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) Active confirmed Problem Affective psychosis (819484647) Unspecified mood [affective] disorder (F39) Active confirmed Problem Bilateral chronic serous otitis (187103695) Chronic serous otitis media, bilateral (H65.23) Active confirmed Problem Vitamin D deficiency (83156866) Vitamin D deficiency (E55.9) Active confirmed Problem Essential hypertension (55822455) Essential hypertension (I10) Active confirmed Problem Gastroesophageal reflux disease (452622981) GERD without esophagitis (K21.9) Active confirmed Problem Chronic pain (26164502) Other chronic pain (G89.29) Active confirmed Problem Acquired hypothyroidism (264808152) Acquired hypothyroidism (E03.9) Active confirmed Problem Morbid obesity (613808177) Morbid obesity due to excess calories (E66.01) Active confirmed Problem History of anemia (198457466) History of anemia (Z86.2) Active confirmed Problem Unsteady gait (12463649) Unsteady gait (R26.81) Active confirmed Problem Personal history of primary malignant neoplasm of breast (631808458) History of breast cancer (Z85.3) Active confirmed Problem Restless legs (25205696) Restless leg (G25.81) Active confirmed Problem History of nutritional deficiency (25368464065984) History of vitamin D deficiency (Z86.39) Active confirmed Problem Plain X-ray of chest abnormal (finding) (0347585516) Abnormal chest xray (R93.89) Active confirmed Problem Uncomplicated moderate persistent asthma (315541856) Moderate persistent asthma in adult without complication (J45.40) Active confirmed Vital Signs Heart Rate 78 /min 12/17/2024 Temperature 98.4 degrees Fahrenheit 12/17/2024 Blood pressure diastolic 78 mm Hg 12/17/2024 Height 5 ft 3 in in 12/17/2024 Blood pressure systolic 124 mm Hg 12/17/2024 Weight 208 lbs 12/17/2024 BMI 36.84 kg/m2 12/17/2024 Encounters Encounter Location Date Provider Diagnosis [facility] [address] [place] [address] 08/10/2024 Provider Migration [facility] [address] [place] [address] 05/06/2024 Matias Lemon Essential hypertensi on I10 ; Acquired hypothyroidism E03.9 ; Malignant neoplasm of upper-outer quadrant of right female breast C50.411 ; Estrogen receptor positive status [ER+] Z17.0 ; History of vitamin D deficiency Z86.39 ; Onychomycosis B35.1 and Restless leg G25.81 [facility] [address] [place] [address] 08/05/2024 Matias Lemon Acquired hypothyroidism E03.9 ; History of vitamin D deficiency Z86.39 ; Essential hypertension I10 ; Pain in right shoulder M25.511 and Other chronic pain G89.29 [facility] [address] [place] [address] 10/02/2024 Matias Lemon Essential hypertensi on I10 ; Morbid obesity due to excess calories E66.01 ; Acquired hypothyroidism E03.9 and Hip pain, right M25.551 [facility] [address] [place] [address] 11/04/2024 Matias Lemon Acquired hypothyroidism E03.9 ; Vitamin D deficiency E55.9 and History of breast cancer Z85.3 [facility] [place] [address] [facility] [address] [place] [address] 12/17/2024 Matias Besson Acquired hypothyroidism E03.9 ; Unspecified mood [affective] disorder F39 and Medication side effect T88.7XXA [facility] [address] [place] [address] 02/16/2024 Matias Besson [facility] [address] [place] [address] 02/19/2024 Matias Besson Abnormal mammogram o f right breast R92.8 [facility] OJVANNI [address] [place] [address] 03/08/2024 Matias Besson Abnormal mammogram o f right breast R92.8 [facility] [address] [place] [address] 03/15/2024 Matias Besson [facility] [address] [place] [address] 03/15/2024 Matias Besson Breast mass N63.0 [facility] [address] [place] [address] 08/05/2024 Matias Besson Pain in right should er M25.511 [facility] [address] [place] [address] 08/19/2024 Matias Besson Pain in right should er M25.511 [facility] [address] [place] [address] 11/06/2024 Matias Besson Assessments Encounter Date Diagnosis (ICD Code) Assessment Notes Treatment Notes Treatment Clinical Notes Section Notes 02/19/2024 Abnormal mammogram of right breast (ICD-10 - R92.8) 03/08/2024 Abnormal mammogram of right breast (ICD-10 - R92.8) 03/15/2024 Breast mass (ICD-10 - N63.0) 05/06/2024 Essential hypertension (ICD-10 - I10) Overall doing well, discussed labile nature of her blood pressure, will address once more stability is happened with her breast cancer diagnosis 05/06/2024 Acquired hypothyroidism (ICD-10 - E03.9) Follow-up in 3 months to reevaluate TSH and T4 when she is on antiandrogen therapy 08/05/2024 Acquired hypothyroidism (ICD-10 - E03.9) Will obtain labs today and adjust synthroid accordingly. Clinically euthyroid in office today. 08/05/2024 History of vitamin D deficiency (ICD-10 - Z86.39) 08/05/2024 Pain in right shoulder (ICD-10 - M25.511) 08/19/2024 Pain in right shoulder (ICD-10 - M25.511) 10/02/2024 Essential hypertension (ICD-10 - I10) Blood pressure excellent. No changes in plan. Will continue current therapy. Renal function normal last week 10/02/2024 Morbid obesity due to excess calories (ICD-10 - E66.01) Congratulated patient on her weight loss. I am very proud of her. She will continue weight watchers efforts. Labs at next visit when she is due for her wellness exam in 11/04/2024 Vitamin D deficiency (ICD-10 - E55.9) On vitamin D replacement therapy. Given her history of breast cancer will reevaluate levels 11/04/2024 Acquired hypothyroidism (ICD-10 - E03.9) Check thyroid panel. Clinically appears euthyroid but given mild aberrancy in labs last time and her continued weight loss will reevaluate Synthroid dosing. 12/17/2024 Unspecified mood [affective] disorder (ICD-10 - F39) Does show some signs of depression. However, does not fit the diagnosis of MDD. Some of her symptoms are likely related to Anastrazole use. Not interested in trialing medications or therapy at this time. Told her to let us know if that ever changed. She was interested in Alzheimers support groups. Informations provided. 12/17/2024 Acquired hypothyroidism (ICD-10 - E03.9) No overt signs of hyperthyroidism. She does have increased hair loss + \ - palpitations. Will decrease Levothyroxine to 137 mcg and recheck TSH in 2 months 12/17/2024 Medication side effect (ICD-10 - T88.7XXA) Side effects to Anastrazole for Breast CA. Experiences hot flashes, mood swings, dizzinees. Tries to combat some of these symptoms by taking it at night. Offered SNRI. She declined but told her it was avialable in the future. 11/04/2024 History of breast cancer (ICD-10 - Z85.3) On anastrozole, follows with oncology. Ordered labs as above, I will review these personally 10/02/2024 Acquired hypothyroidism (ICD-10 - E03.9) Thyroid function stable. No change in plan 08/05/2024 Essential hypertension (ICD-10 - I10) 05/06/2024 Malignant neoplasm of upper-outer quadrant of right female breast (ICD-10 - C50.411) Following with surgeon and oncologist. 05/06/2024 Estrogen receptor positive status [ER+] (ICD-10 - Z17.0) 08/05/2024 Pain in right shoulder (ICD-10 - M25.511) Will send to PT for shoulder OA. 10/02/2024 Hip pain, right (ICD-10 - M25.551) Does not wish to see Ortho at this point. Discussed scheduled Tylenol with patient. No changes in plan at this point 05/06/2024 History of vitamin D deficiency (ICD-10 - Z86.39) 08/05/2024 Other chronic pain (ICD-10 - G89.29) 05/06/2024 Onychomycosis (ICD-10 - B35.1) 05/06/2024 Restless leg (ICD-10 - G25.81) Doing well with current medications. Refills. I will follow-up in 3 months for labs Plan Of Treatment Pending Test Test Name Order Date X ray : Chest 10/05/2022 Mammogram : Bilateral 03/25/2020 CTA : Aorta w/Bilateral Femoral Run Off 10/30/2023 Occupational Therapy : Eval & Treatment 08/19/2024 H-CBC with AUTO DIFF 06/24/2016 H-CBC with AUTO DIFF 03/27/2015 H-VITAMIN B12 03/27/2015 H-FERRITIN 06/24/2016 H-CMP 03/27/2015 H-CMP 06/24/2016 H-MAGNESIUM 06/24/2016 H-MAGNESIUM 03/27/2015 H-LIPID PANEL 03/27/2015 H-CPK 06/24/2016 H-THYROID PANEL 2- (T3 Uptake, T4, Free Thyroxine Index, TSH) 06/24/2016 H-THYROID PANEL 2- (T3 Uptake, T4, Free Thyroxine Index, TSH) 03/27/2015 H-TSH 11/10/2015 H-VIT D, 25-HYDROXY 03/27/2015 H-SED RATE 06/24/2016 M-Complete Blood Count Auto Diff 019 M-Complete Blood Count Auto Diff 019 M-Cardiac Enzymes 05/30/2018 M-Comprehensive Metabolic Panel 05/30/19 19 M-Comprehensive Metabolic Panel 12/18/19 19 M-Magnesium 12/17/2018 M-Thyroid Stimulating Hormone 12/17/2018 M-Vitamin B12 12/17/2018 M-Vitamin D 25 Hydroxy 12/17/2018 Physical Therapy Eval and Treat 08/06/19 25 VITAMIN D,25-OH,TOTAL,IA (58890) 024 VITAMIN D,25-OH,TOTAL,IA (06894) 025 Future Test Test Name Order Date M-Complete Blood Count Auto Diff 018 M-Comprehensive Metabolic Panel 10/31/19 18 M-Thyroid Panel 10/30/2017 M-Thyroid Panel 11/26/2018 Next Appt Details Provider Name:Matias Lemon, 02/24/2025 11:45:00 AM, [address] [facility], [address], [place], [address], Insurance Providers Payer Name Payer Address Payer Phone Subscriber Number Group Number Insured Name Patient Relationship to Insured Coverage Start Date Coverage End Date MEDICARE PART [place] [address] [place] [place] [address] [id number] Jim Russo Self - patient is the insured 1 [facility] [address] [place] [address] [id number] Jim Russo Self - patient is the insured 2 [employer] [address] [facility] [address] [place] [address] ACL Jim Russo Self - patient is the insured Medications Administered Medication Instructions Date of Administration Dosage Notes Ceftriaxone 500 05/31/2016 500 mg Kenalog 40mg 04/10/2017 40 mg Triamcinolone Acetonide 40mg Injection 05/30/2018 1 mL Kenalog 05/31/2016 1 mL Medical (General) History Medical History History ICD Code hypertension Hypothyroidism Normal colonoscopy 03/25 and negative co loguard 03/31 Normal mamm 04/27 Normal DEXA scan 01/2022 breast cancer Surgical History Surgery Date(Month/Year) 1987 gastric bypass 2002 colonoscopy 03/2018 cyst removal lt hand 07/2020 lumpectomy 2023 25 rounds of radiation 2024 Hospitalization History Reason Date(Month/Year) [facility] chest pain 08/2016 all above surgeries
--- OUTSIDE RECORDS SUMMARY | 2025-02-10 09:57 | XMS_ITS | Encounter Summary ---
Author Organization Healthcare Address [address] [place] [address] Care Team Providers Care Course Developer Name Role Phone Matias Lemon MD Primary Care Provider [phone] Encounter Details Date Type Department Care Team (Latest Contact Info) Description 01/09/2025 Travel Social History Tobacco Use Types Packs/Day Years Used Date Smoking Tobacco: Never Assessed Comments Unknown Sex and Gender Information Value Date Recorded Sex Assigned at Not on file Legal Sex Female 5:46 PM EDT Gender Identity Not on file Sexual Orientation Not on file documented as of this encounter Plan of Treatment Upcoming Encounters Date Type Department Care Team (Late st Contact Info) Description 01/19/2026 10:00 AM EDT Ovarian Cancer Screening [facility] Gynecology [address] [facility] [place] [address] documented as of this encounter Visit Diagnoses Not on filedocumented in this encounter Care Teams Course Developer Relationship Specialty Start Date End Date Matias Lemon MD [address] [place] [address] PCP - General Internal Medicine 04/26/24 documented as of this encounter
--- OUTSIDE RECORDS SUMMARY | 2025-02-10 09:57 | XMS_ITS | Patient Health Record ---
Author Organization [facility] Address [address] [facility] [address] [place] [address] Care Team Providers Care Wound/Ostomy Clinical Nurse Specialist Name Role Phone Osiris Rodarte Unavailable [phone] Allergies Allergen (clinical drug ingredient) Drug/Non Drug Allergy documented on EMR Reaction Allergy Type Onset Date Status TETANUS (uncoded) Unspecified Allergy 12/21/2010 Active PENICILLIN V POTASSIUM (PENICILLIN V POTASSIUM TAB Unspecified Drug Allergy 12/21/2010 Active Reason For Referral No Information Social History Social History Sexual History: Social Info Question Answer Notes Sexual History Had sex in the past 12 months (vaginal, oral, or anal)? Yes Drugs/Alcohol: Social Info Question Answer Notes Drugs Have you used drugs other than those for medical reasons in the past 12 months? No Alcohol Screen Did you have a drink containing alcohol in the past year? Yes Points 0 Interpretation Negative Tobacco Use: Social Info Question Answer Notes Tobacco Use/Smoking Are you a former smoker Tobacco use other than smoking: Are you an other tobac co user? 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 LISINOPRIL TABS SYNTHROID 75 MCG ORAL TABLET Surgical History Surgery Date(Month/Year) C/S gastric bypass
== END 2025-02-10 23:59 | disposition home or self-care (01) ==
LOC: RAD 09:51
PROVIDERS: PCP Internal Medicine Adolescent Medicine; Visit Provider Surgery
DX: Z12.31 Encounter for screening mammogram for malignant neoplasm of breast (principal); R92.323 Mammographic fibroglandular density, bilateral breasts; Z90.11 Acquired absence of right breast and nipple; Z85.3 Personal history of malignant neoplasm of breast; Z92.3 Personal history of irradiation
CPT/HCPCS: 77063; 77067

== ENCOUNTER 2025-02-25 10:37 | Outpatient (CLI) | payer MEDICARE, SELFPAY ==
--- OUTSIDE RECORDS SUMMARY | 2024-08-10 17:30 | XMS_ITS ---
Author Organization [facility] PE D JOV[place] Address [address] [place] [address] Care Team Providers Care Mat Maker Name Role Phone Matias Lemon Primary Care Provider [phone] Matias Lemon Unavailable Unavailable Migration, Provider Unavailable Unavailable Allergies Allergen (clinical drug ingredient) Drug/Non Drug Allergy documented on EMR Reaction Allergy Type Onset Date Status Penicillin anaphylaxis as infant Drug Allergy Active REASON FOR VISIT [facility] To [facility] Conversion Encounter Medications Medication SIG (Take, Route, [...] Active Encounters Encounter Location Date Provider Diagnosis [facility] PED [facility] [address] [place] [address] 08/10/2024 Provider Migration Plan Of Treatment Next Appt Details Provider Name:Matias Lemon, 08/26/2025 11:00:00 AM, [address] [place] [address], [address], Progress Notes * Jim MENDENHALL EDOB:[birth year] (69 yo F)Acc No.[id number]:08/10/2024 Patient: Isak Jim DISLA Provider: Anisa rodriguez Migration :1955 A ge:69 Y S ex:Female Date:08/10/2024 Address:[address] [place], [place] [id number] Pcp:Matias Lemon Subjective: * Chief Complaints: * [...] daily * Allergies: P enicillin: anaphylaxis as infant. Objective: * Vitals: Assessment: Plan: * Treatment: * * Electronic signature of Prov ider Migration on 02/25/2025 at 10:46 AM EDT Sign off status: Pending * Provider: Anisa rodriguez Migration Date: 0 08/10/2024 Generated for Fady alarcon/Lazaro/Whit on: 10:46 AM EDT
--- OUTSIDE RECORDS SUMMARY | 2025-02-24 07:45 | XMS_ITS ---
Author Organization [facility] Address [address] [place] [address] Care Team Providers Care Rail Transportation Operator Name Role Phone Matias Lemon Primary Care Provider Matias Lemon Unavailable Unavailable Allergies Allergen (clinical drug ingredient) Drug/Non Drug Allergy documented on EMR Reaction Allergy Type Onset Date Status Penicillin anaphylaxis as infant Drug Allergy Active REASON FOR VISIT wellness. Fungal infection on big toe on left foot Medications Medication SIG (Take, Route, Frequency, Duration) Notes Start Date End Date Status Meloxicam 15 MG 1 tab(s) orally once a day; Duration: 90 days Active Lisinopril 20 MG 1 tab(s) orally twic e daily; Duration: 90 days Active Synthroid 137 MCG 1 tab(s) orally once a day; Duration: 90 days Active Magnesium Oxide 400 MG 1 tab(s) orally o nce daily; Duration: 90 days Active Terbinafine HCl 250 MG TAKE 1 TABLET BY MOUTH DAILY; Duration: 90 Active Omeprazole 20 MG 1 cap(s) orally once a day; Duration: 90 days Active HAIR, SKIN, NAILS 5 MG 1 CAP(S) ORALLY O NCE A DAY Active Fish Oil 1200 MG 1 cap(s) orally once a day Active B-12 1000 MCG 1 tab(s) orally once a day; Duration: 90 days 1500mcg Active Multivitamin - 1 tab(s) orally once a day; Duration: 90 days Active Anastrozole 1 MG 1 tablet Orally Once a day Active Probiotic 1 TAB PO QD \ Active GLUCOSAMINE CHONDROITIN 20 MG-400 MG-500 MG-2 MG 2 CAPS ORALLY ONCE A DAY Active Vitamin C 500 MG 1 tab(s) orally once a day Active Immunizations Vaccine Route Administration Date Status Comme nts Fluzone High Dose IM Intramuscular 02/24/2025 Administered Vital Signs Temperature 97.1 degrees Fahrenheit 02/25/20 25 Heart Rate 64 /min 02/24/2025 Blood pressure systolic 128 mm Hg 02/25/20 25 Blood pressure diastolic 76 mm Hg 025 Height 5 ft 3 in in 02/24/2025 Weight 196.6 lbs 02/24/2025 BMI 34.82 kg/m2 02/24/2025 Encounters Encounter Location Date Provider Diagnosis [facility] [address] [place], [place] [address] 02/24/2025 Matias Lemon Essential hypertensi on I10 ; Morbid obesity due to excess calories E66.01 ; Acquired hypothyroidism E03.9 ; GERD without esophagitis K21.9 ; Onychomycosis of toenail B35.1 ; Routine medical exam Z00.00 and Immunization(s) administered Z23 Assessments Encounter Date Diagnosis (ICD Code) Assessment Notes Treatment Notes Treatment Clinical Notes Section Notes 02/24/2025 Essential hypertension (ICD-10 - I10) Blood pressure under good control, doing well with sustained weight loss. No changes in plan 02/24/2025 Morbid obesity due to excess calories (ICD-10 - E66.01) 12 pound weight loss over the past 3 months, continues to improve 02/24/2025 Acquired hypothyroidism (ICD-10 - E03.9) Clinically euthyroid, reviewed labs from last visit. No changes in plan 02/24/2025 GERD without esophagitis (ICD-10 - K21.9) On PPI. Doing well 02/24/2025 Onychomycosis of toenail (ICD-10 - B35.1) Refilled terbinafine. Seems to be improving, do another 3-month 02/24/2025 Routine medical exam (ICD-10 - Z00.00) Up-to-date with mammograms, DEXA, colon screening. Sad and some tearful stress issues but no evidence of actual depression criteria. Discussed stress with her sister, discussed ways to help out, including hospice consultation for her sisters terminal case. Will discuss again at her sisters appointment next week. No falls, HRA reviewed, 3/2 word recall. is healthcare surrogate. 02/24/2025 Immunization(s) administered (ICD-10 - Z23) Flu shot today, otherwise vaccines up-to-date Plan Of Treatment Treatment Notes Assessment Notes Essential hypertension Blood pressure un shraddha good control, doing well with sustained weight loss. No changes in plan Morbid obesity due to excess calories 12 pound weight loss over the past 3 months, continues to improve Acquired hypothyroidism Clinically euthy roid, reviewed labs from last visit. No changes in plan GERD without esophagitis On PPI. Doing w ell Onychomycosis of toenail Refilled terbinafine. Seems to be improving, do another 3-month Routine medical exam Up-to-date with mammograms, DEXA, colon screening. Sad and some tearful stress issues but no evidence of actual depression criteria. Discussed stress with her sister, discussed ways to help out, including hospice consultation for her sisters terminal case. Will discuss again at her sisters appointment next week. No falls, HRA reviewed, 3/2 word recall. is healthcare surrogate. Immunization(s) administered Flu shot to day, otherwise vaccines up-to-date Next Appt Details Follow Up: 6 Months, Reason: Provider Name:Matias Lemon, 08/26/2025 11:00:00 AM, [address] [place] [address], [id number], Progress Notes * Jim MENDENHALL EDOB:[birth year] (69 yo F)Acc No.[id number]:02/24/2025 Progress notes Patient: Isak Jim DISLA Provider: Ivonne Lemon MD :1955 A ge:69 Y S ex:Female Date:02/24/2025 [address] [address] [place] Subjective: * Chief Complaints: * 1 . wellness. Fungal infection on big toe on left foot. * HPI: g en: Here to follow-up her blood pressure, overall medical problems and go over her Medicare annual wellness visit. Feels well. Still with limited onychomycosis on her right great toenail but it is improving. Under a lot of emotional stress-see notes below. No falls, HRA reviewed. * ROS: F UNCTIONAL STATUS: ADLS I ndependent for all ADL/IADL. * Medical History: H ypertension, Hypothyroidism, Normal colonoscopy 03/25 and negative cologuard 03/31, Normal mamm 04/27, Normal DEXA scan 01/2022, Breast cancer. * Surgical History: c -section 1987, gastric bypass 2002, colonoscopy 03/2018, cyst removal lt hand 07/2020, lumpectomy 2023, 25 rounds of radiation 2024. * Hospitalization/Major Diagno stic Procedure: a ll above surgeries , [facility] chest pain 08/2016. * Family History: F [...] , 1 daughter(s) - healthy. . * Social History: S moking A re you a:: nonsmoker. R ecreational drug use: no. Exercise: yes. Home smoke detector use: yes. Caffeine: yes, 4 cups coffee daily. Living Will: No. Alcohol: no. Sexually active: yes. Travel outside [place]: no. 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 * Medications: T aking Anastrozole 1 MG [...] Tablet 1 tab(s) orally twice daily , Taking Synthroid 137 MCG Tablet 1 tab(s) orally once a day , Taking Magnesium Oxide 400 MG Tablet 1 tab(s) orally once daily , Taking Terbinafine HCl 250 MG Tablet TAKE 1 TABLET BY MOUTH DAILY , Medication List reviewed and reconciled with the patient * Allergies: P enicillin: anaphylaxis as infant. Objective: * Vitals: N urse: KJ, Pain: 4, Temp: 97.1, RR: 16, HR: 64, BP: 128/76, Ht: 5 ft 3 in, Wt: 196.6, BMI:34.82. * Examination: G eneral Examination: General P leasant and Cooperative, NAD on RA,. Heart: R egular Rate and Rhythm, no murmur, rubs or gallops. HEENT: p harynx and tonsils normal, TM's normal. Lungs: L CTAB, No wheezes, crackles or rhonchi, Good air movement,. Extremities: n ormal ROM,, no clubbing, no edema,, no foot lesions,. Psych S omewhat tearful, however normal affect considering her stress with her sister's terminal dementia. Good eye contact, neatly dressed, good judgment. Assessment: * Assessment: 1. E ssential hypertension - I10 (Primary) 2 . M orbid obesity due to excess calories - E66.01 3 . A cquired hypothyroidism - E03.9 4 .?GERD without esophagitis - K21.9 5 . O nychomycosis of toenail - B35.1 & #160; 6 . R outine medical exam - Z00.00 7 . I mmunization(s) administered - Z23 Plan: * Treatment: 2. M orbid obesity due to excess calories Notes: 12 pound weight loss over the past 3 months, continues to improve 3. A cquired hypothyroidism Notes: Clinically euthyroid, reviewed labs from last visit. No changes in plan 4. G ERD without esophagitis Notes: On PPI. Doing well 5. O nychomycosis of toenail Notes: Refilled terbinafine. Seems to be improving, do another 3-month 6. R outine medical exam Notes: Up-to-date with mammograms, DEXA, colon screening. Sad and some tearful stress issues but no evidence of actual depression criteria. Discussed stress with her sister, discussed ways to help out, including hospice consultation for her sisters terminal case. Will discuss again at her sisters appointment next week. No falls, HRA reviewed, 3/2 word recall. is healthcare surrogate. 7. I mmunization(s) administered Notes: Flu shot today, otherwise vaccines up-to-date * Immunizations: Fluzone High Dose : 0.7 mL (Route: Intramuscular) given by EDGARD Nix on Right Arm (Immunization(s) administered) * Procedure Codes: 9 0662 Influenza High Dose Vaccine >65 Years Old, Units: 1.40 , G0008 ADMINISTRATION-FLU VACCINE MEDICARE ONLY, G0439 ANNUAL WELLNESS VST; PPS SUBSQT VST, 1170F FUNCTIONAL STATUS ASSESSMENT, G8399 PT W/DXA DOCUMENT OR ORDER, 1123F ADVANCED DIRECTIVE - HAS A LIVING WILL, G9899 Screening diagnostic,film,digital results documented and reviewed, 3017F COLORECTAL CA SCREEN DOC REV, G8417 BMI >=30 CALCUATE W/FOLLOWUP, G8510 NEGATIVE SCREENING F/U NOT REQUIRED, G9903 Pt scrn tbco id as non user, 1036F TOBACCO NON-USER, G8752 Most recent systolic blood pressure < 140mmhg, G8754 Most recent diastolic blood pressure < 90mmhg, G9744 PATIENT NOT ELIG D/T ACTIVE DX HTN * Follow Up: 6 Months * * Sign off status: Completed true * Provider: Ivonne Lemon MD Date: Generated for Fady alarcon/Lazaro/Eberitting on: 10:46 AM EDT History and Physical Notes * HPI (History of Present Illness) Category Sub-Category Detail Notes Category Not es gen Here to follow-up her blood pressure, overall medical problems and go over her Medicare annual wellness visit. Feels well. Still with limited onychomycosis on her right great toenail but it is improving. Under a lot of emotional stress-see notes below. No falls, HRA reviewed Examination Category Sub-Category Detail Notes Category Not es General Examination HEENT: pharynx and tonsils normal, TM's normal Heart: Regular Rate and Rhy thm, no murmur, rubs or gallops Lungs: LCTAB, No wheezes, c rackles or rhonchi, Good air movement, Extremities: normal ROM,, no club david, no edema,, no foot lesions, General Pleasant and Coopera tive, NAD on RA, Psych Somewhat tearful, ho wever normal affect considering her stress with her sister's terminal dementia. Good eye contact, neatly dressed, good judgment
--- NOTE | 2025-02-25 10:42 | XR_ITS ---
FINAL REPORT CLINICAL HISTORY: Pain in left hip COMPARISON: None FINDINGS: LEFT HIP: Two views of the left hip with an AP view of the pelvis demonstrate no acute fracture or dislocation. Mild degenerative changes noted. The visualized bony structures are well aligned. No soft tissue abnormality is seen. IMPRESSION: Mild degenerative change without acute bony abnormality. Reviewed, Interpreted and Dictated by Andres Cardona MD Transcribed by Sylwia Stearns Authenticated and [facility]
--- NOTE | 2025-02-25 10:42 | XR_ITS ---
FINAL REPORT CLINICAL HISTORY: Pain in lower back COMPARISON: None FINDINGS: Three views of the lumbosacral spine were obtained. No fracture is identified. There is severe diffuse degenerative disc disease with spondylosis. Vacuum disc changes are noted at L4-5 and L5-S1. There is retrolisthesis of L3 on L4 measuring 3 mm. Facet arthropathy is noted. IMPRESSION: Advanced degenerative changes. Reviewed, Interpreted and Dictated by Andres Cardona MD Transcribed by Sylwia Stearns Authenticated and [facility]
--- OUTSIDE RECORDS SUMMARY | 2025-02-25 10:46 | XMS_ITS | Patient Health Record ---
Author Organization 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 LISINOPRIL TABS SYNTHROID 75 MCG ORAL TABLET Surgical History Surgery Date(Month/Year) C/S gastric bypass
--- OUTSIDE RECORDS SUMMARY | 2025-02-25 10:46 | XMS_ITS | Clinical Summary ---
Author Organization [facility] Address [address] [place] [address] Care Team Providers Care Survey Operations Director Name Role Phone Matias Lemon MD Primary Care Provider + [phone] Encounters Date Type Department Care Team Description [...] [facility]ne[facility] [address] [place] [address] Health Maintenance Due Date Last Done Comments [facility]-Bone Density Scan 1955 [facility]-Depression Screening 1956 [facility]-Hepatitis C Screening 1955 [facility]-Medicare Annual Wellness (AWV) 1955 [facility]-/Child/Adol SDOH Screenings 1955 [facility]-Obesity Intervention 1962 [facility]- SDOH Screenings 1974 [facility]-Adult SDOH Screenings 1974 CT Colonography 2001 Colonoscopy 2001 FIT 2001 FOBT 2001 Sigmoidoscopy 2001 [facility]-Breast Cancer Screening 2006 [id number] Vaccine (7 - Moderna risk season) 2025 [...] age to complete this topic Insurance MEDICARE [facility] Care Teams Survey Operations Director Relationship Specialty Start Date End Date Matias Lemon MD [address] [place] [id number] PCP - General Internal Medicine 04/26/24
--- OUTSIDE RECORDS SUMMARY | 2025-02-25 10:46 | XMS_ITS | Encounter Summary ---
Author Organization [facility] Address [address] [place] [address] Care Team Providers Care Conveyor System Operator Name Role Phone Matias Lemon MD Primary Care Provider [phone] Encounter Details Date Type Department Care Team [...] 01/19/2026 10:00 AM EDT Ovarian Cancer Screening [facility] Gynecology [address] [facility], [address] [place] [address] documented as of this encounter Visit Diagnoses Not on filedocumented in this encounter Care Teams Conveyor System Operator Relationship Specialty Start Date End Date Matias Lemon MD [address] [place] [address] PCP - General Internal Medicine 04/26/24 documented as of this encounter
--- OUTSIDE RECORDS SUMMARY | 2025-02-25 10:47 | XMS_ITS | Patient Health Record ---
Author Organization [facility] D JOVANNI Address [address] [facility] [address] [place] [address] Care Team Providers Care Refrigeration Insulator Name Role Phone Matias Lemon Primary Care Provider Matias Lemon Unavailable Unavailable Migration, Provider Unavailable Unavailable Allergies Allergen (clinical drug ingredient) Drug/Non Drug Allergy documented on EMR Reaction Allergy Type Onset Date Status Penicillin anaphylaxis as Drug Allergy Active Results Component Value Reference Range Notes COMPREHENSIVE METABOLIC PANE L (98076) Reviewed date:08/06/2024 02:01:08 PM Interpretation: Performing Lab:[facility], [facility], [facility] CenterGssyOH[address] Derek Interiano Notes/Report: NON-FASTING; NON-FASTING; NON-FASTING; NON-FASTING [...] 29 10-35 U/L ALT 26 6-29 U/L CBC (INCLUDES DIFF/PLT) (639 9) Reviewed date:08/06/2024 02:01:08 PM Interpretation: Performing Lab:[facility] [employer] Organized Through Lovee[address] [facility], FunplusWwhlFR[address] Derek Interiano Notes/Report: NON-FASTING; NON-FASTING; NON-FASTING; NON-FASTING [...] MPV 12.1 7.5-12.5 fL ABSOLUTE NEUTROPHILS [phone] cells/uL ABSOLUTE LYMPHOCYTES 643 744-6421 cells/uL ABSOLUTE MONOCYTES 414 200-950 cells/uL ABSOLUTE EOSINOPHILS 68 15-500 cells/uL ABSOLUTE BASOPHILS 30 0-200 cells/uL NEUTROPHILS 70.6 LYMPHOCYTES 15.9 MONOCYTES 10.9 EOSINOPHILS 1.8 BASOPHILS 0.8 THYROID PANEL (7020) Reviewed date:08/06/2024 02:01:08 PM Interpretation: Performing Lab:GABY, [employer] [facility] Through Lovee13[address] [facility], FunplusXlsyXT[address] Derek Interiano Notes/Report: NON-FASTING; NON-FASTING; NON-FASTING; NON-FASTING T3 UPTAKE 36 22-35 % T4 (THYROXINE), TOTAL 11.2 5.1-11.9 mcg/dL FREE T4 INDEX (T7) 4.0 1.4-3.8 Ultrasound : Guided Biopsy Reviewed date:04/08/2024 01:16:19 PM Interpretation: Performing Lab: Notes/Report: THYROID PANEL WITH TSH (7444 ) Reviewed date:11/06/2024 02:55:12 PM Interpretation: Performing Lab:GABY, [employer] [id number] [address] reQRdos [facility], [place] BjviBD[address] Derek Interiano Notes/Report: NON-FASTING; NON-FASTING; NON-FASTING; NON-FASTING T3 UPTAKE 35 22-35 % T4 (THYROXINE), TOTAL 11.0 5.1-11.9 mcg/dL FREE T4 INDEX (T7) 3.9 1.4-3.8 TSH 0.05 0.40-4.50 mIU/L COMPREHENSIVE METABOLIC PANE L (63789) Reviewed date:11/06/2024 02:55:13 PM Interpretation: Performing Lab:GABY [employer] [id number] [facility] re[facility], [facility] CenterXnkxYX[address] Derek Interiano Notes/Report: NON-FASTING; NON-FASTING; NON-FASTING; NON-FASTING [...] 33 10-35 U/L ALT 24 6-29 U/L CBC (INCLUDES DIFF/PLT) (639 9) Reviewed date:11/06/2024 02:55:13 PM Interpretation: Performing Lab:[facility] [employer] [id number] [place], [facility] CenterTpzjCL[address] Derek Interiano Notes/Report: NON-FASTING; NON-FASTING; NON-FASTING; NON-FASTING [...] MPV 12.0 7.5-12.5 fL ABSOLUTE NEUTROPHILS 3010 8761-0254 cells/uL ABSOLUTE LYMPHOCYTES 821 865-8800 cells/uL ABSOLUTE MONOCYTES 383 200-950 cells/uL ABSOLUTE EOSINOPHILS 90 15-500 cells/uL ABSOLUTE BASOPHILS 22 0-200 cells/uL NEUTROPHILS 70 LYMPHOCYTES 18.5 MONOCYTES 8.9 EOSINOPHILS 2.1 BASOPHILS 0.5 VITAMIN D,25-OH,TOTAL,IA (17 306) Reviewed date:11/06/2024 02:55:13 PM Interpretation: Performing Lab:GAB[facility] [employer] [id number] [address] [place], [facility] CenterWwxfUG[address] Derek Interiano Notes/Report: NON-FASTING; NON-FASTING; NON-FASTING; NON-FASTING VITAMIN D,25-OH,TOTAL,IA 72 30-100 ng/mL Vitamin D Status 25-OH Vitamin D: Deficiency: <20 ng/mL Insufficiency: 20 - 29 ng/mL Optimal: > or = 30 ng/mL For 25-OH Vitamin D testing on patients on D2-supplementation and patients for whom quantitation of D2 and D3 fractions is required, the [facility] 25-OH VIT D, (D2,D3), LC/MS/MS is recommended: order code 17812 (patients >2yrs). See Note 1 Note 1 For additional information, please refer to [email or web address] (This link is being provided for informational/ educational purposes only.) Ultrasound : Breast, Right Reviewed date:03/17/2024 12:05:39 PM Interpretation: Performing Lab: Notes/Report: Reason For Referral Reason Breast Biopsy Referral Organization [facility] PED JOVANNI Referring Provider First Name Matias Referring Provider Last Name Xochilt [facility] Referral Priority Routine Referral Appointment Date 04/01/2024 Reason [facility] PT eval Diagnosis 1 Pain in right should er (M25.511) Referral Organization [facility] DOUG BAIG Referring Provider First Name Matias Referring Provider Last Name Xochilt Referring Provider [facility] [address] Internal edicine Referred Organization [facility] Referred Address [address] [place] [address], [place], [place],[address], Referred Provider 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 General Notes Ayanna Kovacs 2024 04:53:43 PM >faxed to [facility] Referral Priority Routine Medications Medication SIG (Take, Route, Frequency, Duration) Notes Start Date End Date Status Omeprazole 20 MG 1 cap(s) orally once a day; Duration: 90 days Active Meloxicam 15 MG 1 tab(s) orally once a day; Duration: 90 days Active Lisinopril 20 MG 1 tab(s) orally twic e daily; Duration: 90 days Active Anastrozole 1 MG 1 tablet Orally Once a day Active Synthroid 137 MCG 1 tab(s) orally once a day; Duration: 90 days Active Probiotic 1 TAB PO QD \ Active Magnesium Oxide 400 MG 1 tab(s) orally o nce daily; Duration: 90 days Active GLUCOSAMINE CHONDROITIN 20 MG-400 MG-500 MG-2 MG 2 CAPS ORALLY ONCE A DAY Active Terbinafine HCl 250 MG TAKE 1 TABLET BY MOUTH DAILY; Duration: 90 Active Vitamin C 500 MG 1 tab(s) orally once a day Active HAIR, SKIN, NAILS 5 MG 1 CAP(S) ORALLY O NCE A DAY Active Fish Oil 1200 MG 1 cap(s) orally once a day Active B-12 1000 MCG 1 tab(s) orally once a day; Duration: 90 days 1500mcg Active Multivitamin - 1 tab(s) orally once a day; Duration: 90 days Active Immunizations Vaccine Route Administration Date Status Comme nts SHINGRIX Unknown 04/16/2018 Administered SHINGRIX Unknown 10/24/2018 Administered Prevnar PCV-20 (Pneumococcal conjugate 20) IM Intramuscular 03/13/2023 Administered Pneumovax 23 IM Intramuscular 07/05/2021 Administered Fluzone High Dose IM Intramuscular 02/18/2022 Administered Fluzone High Dose IM Intramuscular 03/13/2023 Administered Fluzone High Dose IM Intramuscular 01/31/2024 Administered Fluzone High Dose IM Intramuscular 02/24/2025 Administered Boostrix IM Intramuscular 01/20/2020 Administered Arexvy IM Intramuscular 01/31/2024 Administered Problems Problem Type SNOMED Code ICD Code Onset Dates Problem Status W/U Status Risk Notes Problem Malignant neoplasm of upper-outer quadrant of female breast (609622094) 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) Active confirmed Problem Affective psychosis (196283518) Unspecified mood [affective] disorder (F39) Active confirmed Problem Bilateral chronic serous otitis (176683870) Chronic serous otitis media, bilateral (H65.23) Active confirmed Problem Vitamin D deficiency (58792797) Vitamin D deficiency (E55.9) Active confirmed Problem Essential hypertension (04640452) Essential hypertension (I10) Active confirmed Problem Gastroesophageal reflux disease (113062425) GERD without esophagitis (K21.9) Active confirmed Problem Chronic pain (63337805) Other chronic pain (G89.29) Active confirmed Problem Acquired hypothyroidism (612311525) Acquired hypothyroidism (E03.9) Active confirmed Problem Morbid obesity (572105806) Morbid obesity due to excess calories (E66.01) Active confirmed Problem History of anemia (053120088) History of anemia (Z86.2) Active confirmed Problem Unsteady gait (55226838) Unsteady gait (R26.81) Active confirmed Problem Personal history of primary malignant neoplasm of breast (471853056) History of breast cancer (Z85.3) Active confirmed Problem Restless legs (25740813) Restless leg (G25.81) Active confirmed Problem History of nutritional deficiency (70528031229575) History of vitamin D deficiency (Z86.39) Active confirmed Problem Plain X-ray of chest abnormal (finding) (7555594723) Abnormal chest xray (R93.89) Active confirmed Problem Uncomplicated moderate persistent asthma (198397006) Moderate persistent asthma in adult without complication (J45.40) Active confirmed Vital Signs Heart Rate 64 /min 02/24/2025 Temperature 97.1 degrees Fahrenheit 02/24/2025 Blood pressure diastolic 76 mm Hg 02/24/2025 Height 5 ft 3 in in 02/24/2025 Blood pressure systolic 128 mm Hg 02/24/2025 Weight 196.6 lbs 02/24/2025 BMI 34.82 kg/m2 02/24/2025 Encounters Encounter Location Date Provider Diagnosis [facility] JOVANNI [address] [place] [address] 08/10/2024 Provider Migration [facility] J[facility] [address] [place] [address] 05/06/2024 Matias Lemon Essential hypertensi on I10 ; Acquired hypothyroidism E03.9 ; Malignant neoplasm of upper-outer quadrant of right female breast C50.411 ; Estrogen receptor positive status [ER+] Z17.0 ; History of vitamin D deficiency Z86.39 ; Onychomycosis B35.1 and Restless leg G25.81 [facility] JOV[facility] [address] [place] [address] 08/05/2024 Matias Lemon Acquired hypothyroidism E03.9 ; History of vitamin D deficiency Z86.39 ; Essential hypertension I10 ; Pain in right shoulder M25.511 and Other chronic pain G89.29 [facility] J[facility] [address] [place] [address] 10/02/2024 Matias Lemon Essential hypertensi on I10 ; Morbid obesity due to excess calories E66.01 ; Acquired hypothyroidism E03.9 and Hip pain, right M25.551 [facility] JOV[facility] [address] [place] [address] 11/04/2024 Matias Lemon Acquired hypothyroidism E03.9 ; Vitamin D deficiency E55.9 and History of breast cancer Z85.3 [facility] [address] [address] 12/17/2024 Matias Besson Acquired hypothyroidism E03.9 ; Unspecified mood [affective] disorder F39 and Medication side effect T88.7XXA [facility] JOV[facility] [address] [facility] [address] [place] [address] 02/24/2025 Matias Besson Essential hypertensi on I10 ; Morbid obesity due to excess calories E66.01 ; Acquired hypothyroidism E03.9 ; GERD without esophagitis K21.9 ; Onychomycosis of toenail B35.1 ; Routine medical exam Z00.00 and Immunization(s) administered Z23 [facility] J[facility] [address] [facility] [address] [place], [place] [address] 03/08/2024 Matiaseve Lemon Abnormal mammogram o f right breast R92.8 [facility] J[facility] [address] [facility] [address] [place] [address] 03/15/2024 Matias Besson [facility] J[facility] [address] [facility] [address] [place], [place] [address] 03/15/2024 Matias Besson Breast mass N63.0 [facility] J[facility] [address] [facility] [address] [place] [address] 08/05/2024 Matias Besson Pain in right should er M25.511 [facility] J[facility] [address] [facility] [address] [place] [address] 08/19/2024 Matias Besson Pain in right should er M25.511 [facility] J[facility] [address] [facility] [address] [place] [address] 11/06/2024 Matias Besson Assessments Encounter Date Diagnosis (ICD Code) Assessment Notes Treatment Notes Treatment Clinical Notes Section Notes 02/24/2025 Essential hypertension (ICD-10 - I10) Blood pressure under good control, doing well with sustained weight loss. No changes in plan 02/24/2025 Morbid obesity due to excess calories (ICD-10 - E66.01) 12 pound weight loss over the past 3 months, continues to improve 12/17/2024 Unspecified mood [affective] disorder (ICD-10 - [...] mcg and recheck TSH in 2 months 11/04/2024 Vitamin D deficiency (ICD-10 - E55.9) On vitamin D replacement therapy. Given her history of breast cancer will reevaluate levels 11/04/2024 Acquired hypothyroidism (ICD-10 - E03.9) Check thyroid panel. Clinically appears euthyroid but given mild aberrancy in labs last time and her continued weight loss will reevaluate Synthroid dosing. 10/02/2024 Essential hypertension (ICD-10 - I10) Blood pressure excellent. No changes in plan. Will continue current therapy. Renal function normal last week 10/02/2024 Morbid obesity due to excess calories (ICD-10 - E66.01) Congratulated patient on her weight loss. I am very proud of her. She will continue weight watchers efforts. Labs at next visit when she is due for her wellness exam in 08/05/2024 Pain in right shoulder (ICD-10 - M25.511) 08/05/2024 Acquired hypothyroidism (ICD-10 - E03.9) Will obtain labs today and adjust synthroid accordingly. Clinically euthyroid in office today. 08/05/2024 History of vitamin D deficiency (ICD-10 - Z86.39) 05/06/2024 Essential hypertension (ICD-10 - I10) Overall doing well, discussed labile nature of her blood pressure, will address once more stability is happened with her breast cancer diagnosis 05/06/2024 Acquired hypothyroidism (ICD-10 - E03.9) Follow-up in 3 months to reevaluate TSH and T4 when she is on antiandrogen therapy 03/15/2024 Breast mass (ICD-10 - N63.0) 03/08/2024 Abnormal mammogram of right breast (ICD-10 - R92.8) 08/19/2024 Pain in right shoulder (ICD-10 - M25.511) 02/24/2025 Acquired hypothyroidism (ICD-10 - E03.9) Clinically euthyroid, reviewed labs from last visit. No changes in plan 08/05/2024 Essential hypertension (ICD-10 - I10) 05/06/2024 Malignant neoplasm of upper-outer quadrant of right female breast (ICD-10 - C50.411) Following with surgeon and oncologist. 10/02/2024 Acquired hypothyroidism (ICD-10 - E03.9) Thyroid function stable. No change in plan 11/04/2024 History of breast cancer (ICD-10 - Z85.3) On anastrozole, follows with oncology. Ordered labs as above, I will review these personally 12/17/2024 Medication side effect (ICD-10 - T88.7XXA) Side effects to Anastrazole for Breast CA. Experiences hot flashes, mood swings, dizzinees. Tries to combat some of these symptoms by taking it at night. Offered SNRI. She declined but told her it was avialable in the future. 02/24/2025 GERD without esophagitis (ICD-10 - K21.9) On PPI. Doing well 08/05/2024 Pain in right shoulder (ICD-10 - M25.511) Will send to PT for shoulder OA. 10/02/2024 Hip pain, right (ICD-10 - M25.551) Does not wish to see Ortho at this point. Discussed scheduled Tylenol with patient. No changes in plan at this point 05/06/2024 Estrogen receptor positive status [ER+] (ICD-10 - Z17.0) 08/05/2024 Other chronic pain (ICD-10 - G89.29) 05/06/2024 History of vitamin D deficiency (ICD-10 - Z86.39) 02/24/2025 Onychomycosis of toenail (ICD-10 - B35.1) [...] appointment next week. No falls, HRA reviewed, 07/07 word recall. is healthcare surrogate. 05/06/2024 Onychomycosis (ICD-10 - B35.1) 05/06/2024 Restless leg (ICD-10 - G25.81) Doing well with current medications. Refills. I will follow-up in 3 months for labs 02/24/2025 Immunization(s) administered (ICD-10 - Z23) Flu shot today, otherwise vaccines up-to-date Plan Of Treatment Pending Test Test Name Order Date X ray : Chest 10/05/2022 Mammogram : Bilateral 03/25/2020 CTA : Aorta w/Bilateral Femoral Run Off 10/30/2023 Occupational Therapy : Eval & Treatment 08/19/2024 H-CBC with AUTO DIFF 03/27/2015 H-CBC with AUTO DIFF 06/24/2016 H-VITAMIN B12 03/27/2015 H-FERRITIN 06/24/2016 H-CMP 06/24/2016 H-CMP 03/27/2015 H-MAGNESIUM 03/27/2015 H-MAGNESIUM 06/24/2016 H-LIPID PANEL 03/27/2015 H-CPK 06/24/2016 H-THYROID PANEL 2- (T3 Uptake, T4, Free Thyroxine Index, TSH) 03/27/2015 H-THYROID PANEL 2- (T3 Uptake, T4, Free Thyroxine Index, TSH) 06/24/2016 H-TSH 11/10/2015 H-VIT D, 25-HYDROXY 03/27/2015 H-SED RATE 06/24/2016 M-Complete Blood Count Auto Diff 019 M-Complete Blood Count Auto Diff 019 M-Cardiac Enzymes 05/30/2018 M-Comprehensive Metabolic Panel 05/30/19 19 M-Comprehensive Metabolic Panel 12/18/19 19 M-Magnesium 12/17/2018 M-Thyroid Stimulating Hormone 12/17/2018 M-Vitamin B12 12/17/2018 M-Vitamin D 25 Hydroxy 12/17/2018 Physical Therapy Eval and Treat 08/06/19 25 VITAMIN D,25-OH,TOTAL,IA (41818) 025 VITAMIN D,25-OH,TOTAL,IA (95832) 024 Future Test Test Name Order Date M-Complete Blood Count Auto Diff 018 M-Comprehensive Metabolic Panel 10/31/19 18 M-Thyroid Panel 10/30/2017 M-Thyroid Panel 11/26/2018 Next Appt Details Provider Name:Matias Lemon, 08/26/2025 11:00:00 AM, 2017 [facility], [place], [address], Insurance Providers Payer Name Payer Address Payer Phone Subscriber Number Group Number Insured Name Patient Relationship to Insured Coverage Start Date Coverage End Date [place] [address] [place] [address] [id number] Jim Russo Self - patient is the insured 1 [facility] [address] [place] [address] [id number] Jim Russo Self - patient is the insured 2 [employer] [facility] [address] [place] [address] ACL Robert Russoserena Self - patient is the insured Medications [...] 01/2022 breast cancer Surgical History Surgery Date(Month/Year) 1988 gastric bypass 2002 colonoscopy 03/2018 cyst removal lt hand 07/2020 lumpectomy 2023 25 rounds of radiation 2024 Hospitalization History Reason Date(Month/Year) [facility] chest pain 08/2016 all above surgeries
== END 2025-02-25 23:59 | disposition home or self-care (01) ==
LOC: RAD 10:39
PROVIDERS: PCP Internal Medicine Adolescent Medicine; Visit Provider Internal Medicine Medical Oncology
DX: C50.811 Malignant neoplasm of overlapping sites of right female breast (principal); M47.816 Spondylosis without myelopathy or radiculopathy, lumbar region; M16.11 Unilateral primary osteoarthritis, right hip
CPT/HCPCS: 72100; 73502